=== PATIENT | male | born 1955 | race Caucasian/White ===

== ENCOUNTER 2016-08-05 06:55 | Outpatient (CLI) | payer OTHER | END 2016-08-05 06:56 | disposition home or self-care (01) | DX: R07.9 Chest pain, unspecified (principal); R06.00 Dyspnea, unspecified ==

== ENCOUNTER 2017-06-15 09:18 | Outpatient (CLI) | payer OTHER ==
[2017-06-15 09:49] LABS: BASOPHILS % (AUTO) 1.1 %; EOSINOPHILS # (AUTO) 0.2 10^3/uL (0.0-0.7); EOSINOPHILS % (AUTO) 5.1 %; HCT - HEMATOCRIT 45.4 % (42.0-52.0); HGB - HEMOGLOBIN 15.8 g/dL (14.0-18.0); LYMPHOCYTES # (AUTO) 1.4 10^3/uL (1.5-3.5); MEAN CORPUSCULAR HEMOGLOBIN 31.6 pg (27.0-31.0); MEAN CORPUSCULAR HGB CONC 34.8 g/dL (32.0-36.0); MEAN CORPUSCULAR VOLUME 90.9 fL (80.0-94.0); MEAN PLATELET VOLUME 8.6 fL (7.4-11.4); MONOCYTES # (AUTO) 0.4 10^3/uL (0.0-1.0); MONOCYTES % (AUTO) 9.8 %; NEUTROPHILS # (AUTO) 2.3 10^3/uL (1.5-6.6); RED CELL DISTRIBUTION WIDTH 13.1 % (12.0-15.0); UNCORRECTED WHITE BLOOD COUNT 4.4 x10^3/uL; WHITE BLOOD COUNT 4.4 x10^3/uL (4.8-10.8)
[2017-06-15 09:59] LABS: ALBUMIN/GLOBULIN RATIO 1.5 (1.0-2.2); BILIRUBIN,TOTAL 0.6 mg/dL (0.2-1.0); BUN - BLOOD UREA NITROGEN 19 mg/dL (6-20); CALCIUM 9.8 mg/dL (8.5-10.3); CARBON DIOXIDE - CO2 27 mmol/L (21-32); CHLORIDE 102 mmol/L (101-111); CHOL/HDL RATIO 4.2 (<5.0); CHOLESTEROL 298 mg/dL; CREATININE 0.9 mg/dL (0.6-1.2); GFR - MDRD 86 (>89); GLUCOSE 109 mg/dL (70-100); HDL CHOLESTEROL 71 mg/dL; LDL/HDL RATIO 2.9 (<3.6); POTASSIUM 4.6 mmol/L (3.5-5.0); SODIUM 138 mmol/L (135-145); TOTAL PROTEIN 7.6 g/dL (6.7-8.2); TRIGLYCERIDES 95 mg/dL; VLDL CHOLESTEROL 19 mg/dL
== END 2017-06-15 09:19 | disposition home or self-care (01) ==
LOC: LAB 09:18
PROVIDERS: ATTEND Physician Assistant Medical
DX: Z00.00 Encounter for general adult medical examination without abnormal findings (principal); Z11.59 Encounter for screening for other viral diseases; E78.2 Mixed hyperlipidemia; Z12.5 Encounter for screening for malignant neoplasm of prostate; N40.0 Benign prostatic hyperplasia without lower urinary tract symptoms
CPT/HCPCS: 36415; 80053; 80061; 84153; 84443; 85025; 86803

== ENCOUNTER 2017-07-08 10:39 | Outpatient (CLI) | payer OTHER | END 2017-07-08 10:40 | disposition home or self-care (01) | LOC: SC 10:39 | PROVIDERS: ATTEND Specialist | DX: G47.33 Obstructive sleep apnea (adult) (pediatric) (principal) | CPT/HCPCS: 99204; 99212 ==

== ENCOUNTER 2017-07-09 10:48 | Outpatient (CLI) | payer OTHER ==
[2017-07-09] MEDS ORDERED: IOPAMIDOL-300 50 ML VIAL ONE ×2 (11:05→11:09)
[2017-07-09] MEDS ORDERED: IOPAMIDOL-300 100 ML VIAL ONE (11:05)
[2017-07-09] MEDS ORDERED: IOPAMIDOL-300 100 ML VIAL IVP ONE (12:46)
[2017-07-09] MEDS ORDERED: IOPAMIDOL-300 50 ML VIAL PO ONE (12:46)
--- NOTE | 2017-07-09 13:03 | CT Preliminary Report ---
Exam: CT ABDOMEN/PELVIS W/ IMPRESSION: 1. Uncomplicated descending/sigmoid diverticulitis. 2. Chronic and incidental findings as above. [facility] SITE ID: [id number]
--- NOTE | 2017-07-09 13:06 | CT Report ---
EXAM: CT ABDOMEN AND PELVIS EXAM DATE: 07/09/2017 12:47 PM. CLINICAL HISTORY: ABDOMINAL PAIN, GENERALIZED. COMPARISONS: 12/12/2014. TECHNIQUE: Routine helical CT imaging was performed through the abdomen and pelvis. IV contrast: 100M L OF ISOVUE 300. Enteric contrast: Yes. Reconstructions: Coronal and sagittal. In accordance with CT protocol optimization, one or more of the following dose reduction techniques w ere utilized for this exam: automated exposure control, adjustment of mA and/or KV based on patient s ize, or use of iterative reconstructive technique. FINDINGS: Lung Bases: Unremarkable. Liver: Small hepatic cysts again demonstrated. Possible mild steatosis. Gallbladder/Bile Ducts: Unremarkable. Spleen: Borderline splenomegaly; no focal abnormality. Pancreas: Normal. Adrenal Glands: Normal. Kidneys: Right inferior pole exophytic simple cyst. Additional bilateral hypodense foci are too small to fully characterize but likely also represent simple cysts. Punctate nonobstructing calculus in th e inferior pole of the right kidney. No right hydronephrosis. Mildly dilated left renal collecting sy stem is similar to prior. Peritoneal Cavity/Bowel: No ascites or pneumoperitoneum. No bowel obstruction or abnormal stool burde n. Moderate to marked diverticulosis, most pronounced in the sigmoid colon. There is wall thickening and adjacent inflammatory fat stranding from the distal descending colon to the mid sigmoid colon. No fluid collection. The appendix is well visualized and normal. Pelvic Organs: The urinary bladder and imaged pelvic organs demonstrate no significant abnormality. Vasculature: Mild atherosclerosis without aneurysm. Bones: Small bilateral fat-containing inguinal hernias, right larger than left. Other: None. IMPRESSION: 1. Uncomplicated descending/sigmoid diverticulitis. 2. Chronic and incidental findings as above. [facility] Referring Provider Line: [phone] SITE ID: [id number]
== END 2017-07-09 10:49 | disposition home or self-care (01) ==
LOC: DI 10:48
PROVIDERS: ATTEND Physician Assistant Medical
DX: K57.32 Diverticulitis of large intestine without perforation or abscess without bleeding (principal)
CPT/HCPCS: 36415; 74177; 80053; 83690; 85025; 85651; 86140; Q9967

== ENCOUNTER 2017-07-13 11:04 | Inpatient (IN) | payer OTHER ==
[2017-07-13] MEDS ORDERED: SODIUM CHLORIDE 0.9% 1,000 ML IV ONE (11:06)
[2017-07-13 11:27] LABS: BASOPHILS % (AUTO) 0.7 %; EOSINOPHILS # (AUTO) 0.1 10^3/uL (0.0-0.7); EOSINOPHILS % (AUTO) 2.3 %; HCT - HEMATOCRIT 42.7 % (42.0-52.0); HGB - HEMOGLOBIN 15.1 g/dL (14.0-18.0); LYMPHOCYTES # (AUTO) 1.2 10^3/uL (1.5-3.5); LYMPHOCYTES % (AUTO) 17.7 %; MEAN CORPUSCULAR HGB CONC 35.4 g/dL (32.0-36.0); MEAN CORPUSCULAR VOLUME 87.5 fL (80.0-94.0); MEAN PLATELET VOLUME 7.6 fL (7.4-11.4); MONOCYTES # (AUTO) 0.6 10^3/uL (0.0-1.0); MONOCYTES % (AUTO) 9.7 %; NEUTROPHILS # (AUTO) 4.6 10^3/uL (1.5-6.6); NEUTROPHILS % (AUTO) 69.6 %; NUCLEATED RED BLOOD CELLS AUTO 0.1 /100WBC; RED BLOOD COUNT 4.89 10^6/uL (4.70-6.10); RED CELL DISTRIBUTION WIDTH 12.6 % (12.0-15.0); UNCORRECTED WHITE BLOOD COUNT 6.6 x10^3/uL; WHITE BLOOD COUNT 6.6 x10^3/uL (4.8-10.8)
[2017-07-13 11:41] LABS: BILIRUBIN,TOTAL 0.6 mg/dL (0.2-1.0); CALCIUM 9.4 mg/dL (8.5-10.3); CREATININE 0.9 mg/dL (0.6-1.2); POTASSIUM 3.7 mmol/L (3.5-5.0); TOTAL PROTEIN 8.1 g/dL (6.7-8.2)
[2017-07-13] MEDS ORDERED: MORPHINE 2 MG/ML SYRINGE IVP STA ×2 (12:00→14:36)
[2017-07-13] MEDS ORDERED: ONDANSETRON 4 MG/2 ML VIAL IVP STA (12:00)
[2017-07-13] MEDS ORDERED: IOPAMIDOL-300 100 ML VIAL ONE (12:28)
[2017-07-13] MEDS ORDERED: MORPHINE 2 MG/ML SYRINGE ONE (12:30)
[2017-07-13] MEDS ORDERED: ONDANSETRON 4 MG/2 ML VIAL ONE (12:30)
--- NOTE | 2017-07-13 13:06 | ED Physician Documentation ---
History of Present Illness - Stated complaint Stated Complaint: ABD PX - Chief complaint Chief Complaint: Abd Pain - Additonal information Additional information: hx from pt 62 male [facility] staff seen in clinic last week for LLQ pain, had CT PO and IV con and dx uncomplicated sigmoid divertic rx cipro flagyl much worse severe pain cant eat back to clinic and sent to ER Review of Systems Constitutional: reports: Myalgias. denies: Fever, Chills Cardiac: denies: Chest pain / pressure Respiratory: denies: Cough GI: reports: Abdominal Pain Neurologic: reports: Headache (he attributes to dehydration) Endocrine: denies: Easy bruising / bleeding Immunocompromised: denies: Immunocompromised PD PAST MEDICAL HISTORY - Past Medical History Past Medical History: Yes Cardiovascular: Hypertension, High cholesterol GI: Diverticulitis : Kidney stones - Past Surgical History Past Surgical History: Yes Ortho: Arthroscopic surgery - Present Medications Home Medications: Ambulatory Orders Medication Instructions Recorded Confirmed Ondansetron Odt [Zofran] 4 mg TL Q6H PRN #10 tablet 12/12/14 Oxycodone HCl/Acetaminophen 1 - 2 each PO Q6H PRN #15 tablet 12/12/14 [Percocet 5-325 mg Tablet] - Allergies Allergies/Adverse Reactions: Allergies Allergy/AdvReac Type Severity Reaction Status Date / Time albuterol Allergy Respiratory Verified 12/12/14 10:20 Sulfa (Sulfonamide Allergy Unknown Verified 12/12/14 10:20 Antibiotics) - Social History Does the pt smoke?: No Smoking Status: Never smoker Does the pt drink ETOH?: No Does the pt have substance abuse?: No PD ED PE NORMAL - Vitals Vital signs reviewed: Yes - General General: Alert and oriented X 3 - HEENT HEENT: PERRL - Neck Neck: Supple, no meningeal sign - Cardiac Cardiac: RRR - Respiratory Respiratory: No respiratory distress, Clear bilaterally - Abdomen Abdomen: Other (severe TTP diffusely LLQ most severe with guarding) - Neuro Neuro: Alert and oriented X 3 Results - Vitals Vitals: Vital Signs - 24 hr 07/13/17 07/13/17 11:09 12:59 Temperature 36.2 C L Heart Rate 65 66 Respiratory 15 18 Rate Blood Pressure 179/93 H 165/91 H O2 Saturation 100 99 Oxygen O2 Source Room air - Labs Labs: Laboratory Tests 07/13/17 07/13/17 11:15 11:15 WBC 6.6 RBC 4.89 Hgb 15.1 Hct 42.7 MCV 87.5 MCH 31.0 MCHC 35.4 RDW 12.6 Plt Count 241 MPV 7.6 Neut # 4.6 Lymph # 1.2 L [place] # 0.6 Eos # 0.1 Baso # 0.0 Absolute Nucleated RBC 0.01 Nucleated RBC % 0.1 Sodium 137 Potassium 3.7 Chloride 98 L Carbon Dioxide 25 Anion Gap 14.0 H BUN 8 Creatinine 0.9 Estimated GFR (MDRD) 86 L Glucose 103 H Calcium 9.4 Total Bilirubin 0.6 AST 37 ALT 39 Alkaline Phosphatase 56 Total Protein 8.1 Albumin 4.1 Globulin 4.0 Albumin/Globulin Ratio 1.0 Lipase 15 L - Rads (name of study) CT AP with IV con Radiology: See rad report (increasing length abn colon now distal descending and prox sigmoid, full ddx = divertic, colitiis, pseudomembranous colitis, ischemia, inflammatory bowel, atypical for malignnay. No perf or abscess. Inc LUQ and LLQ mesenteric edema and adenopathy. New trace FF. Hepatic and renal cysts. R renal stones, no obstructive process) PD MEDICAL DECISION MAKING - ED course ED course: d/w surgeon Dr Casas, rec change to zosyn, no need for surgery, admit to medicine paged hospitalist at 137 PM Departure - Departure Disposition: 66 [facility] DC/Xfer Clinical Impression: Diverticulitis
[2017-07-13] MEDS ORDERED: IOPAMIDOL-300 100 ML VIAL IVP ONE (13:17)
--- NOTE | 2017-07-13 13:27 | CT Preliminary Report ---
Exam: CT ABDOMEN/PELVIS W/ IMPRESSION: 1. Increasing length of the abnormal colon now involving the distal descending colon and proximal sig moid colon consistent with extension of diverticulitis. Full differential would include colitis, pseu domembranous colitis, ischemia, inflammatory bowel disease. Atypical for nonobstructing malignancy. N o evidence of perforation nor abscess. 2. Increasing left upper quadrant and left lower quadrant mesenteric edema and shotty mesenteric vinnie opathy. 3. New trace amount of free pelvic fluid. 4. Hepatic and renal cysts. 5. Right renal lithiasis. No obstructive uropathy. [facility] SITE ID: [id number]
[2017-07-13] MEDS ORDERED: PIPERACILLIN/TAZOBACTAM 3.375 GM in SODIUM CHLORIDE 0.9% MINIBAG 100 ML IV STA (13:34)
--- NOTE | 2017-07-13 13:45 | CT Report ---
EXAM: CT ABDOMEN AND PELVIS EXAM DATE: 07/13/2017 12:49 PM. CLINICAL HISTORY: Sigmoid diverticulitis diagnosed 07/09/2017. Despite antibiotic therapy, increasing pain. COMPARISONS: 07/09/2017. TECHNIQUE: Routine helical CT imaging was performed through the abdomen and pelvis. IV contrast: 100 mL Isovue 300. Enteric contrast: No. Reconstructions: Coronal and sagittal. In accordance with CT protocol optimization, one or more of the following dose reduction techniques w ere utilized for this exam: automated exposure control, adjustment of mA and/or KV based on patient s ize, or use of iterative reconstructive technique. FINDINGS: Lung Bases: Unremarkable. Liver: Several dozen 3 cm and smaller hepatic cysts. Gallbladder/Bile Ducts: Unremarkable. Spleen: Normal. Pancreas: Normal. Adrenal Glands: Normal. Kidneys: 3.5 cm and smaller renal cysts bilaterally with several left parapelvic cysts. No hydronephr osis allowing for such. Both ureters are small in caliber. 2 mm stone in the inferior right renal calyx unchanged. No solid mass lesions. Peritoneal Cavity/Bowel: Previously, 5 cm segment of abnormal distal descending colon. The length of colon wall thickening, small amount of adjacent mesenteric edema and linear fluid collections has inc reased to 15 cm in length now extending from the junction of the mid and inferior third descending co oanh distally to involve the proximal third sigmoid colon. Multiple inflamed diverticuli in this regio n. No extraluminal air nor abscess. Slight increase in nonspecific mesenteric edema left upper quadrant and left lower quadrant. Interval decreasing caliber of a left upper quadrant mesenteric lymph node previously measuring 1.7 x 1.0 cm, now measuring 0.7 cm in maximum cross-sectional diameter. Overall, increasing shotty mesenteric vinnie opathy on the left. Large and small bowel unremarkable. The appendix is well visualized and normal. Pelvic Organs: New trace amount of free fluid. No stones in the small caliber urinary bladder. Prosta te normal caliber. Rectum is normal. Small bilateral fat-containing inguinal hernias. Vasculature: No aneurysms or other significant abnormality. Bones: No significant abnormality. Other: None. IMPRESSION: 1. Increasing length of the abnormal colon now involving the distal descending colon and proximal si gmoid colon consistent with extension of diverticulitis. Full differential would include colitis, pse udomembranous colitis, ischemia, inflammatory bowel disease. Atypical for nonobstructing malignancy. No evidence of perforation nor abscess. 2. Increasing left upper quadrant and left lower quadrant mesenteric edema and shotty mesenteric vinnie opathy. 3. New trace amount of free pelvic fluid. 4. Hepatic and renal cysts. 5. Right renal lithiasis. No obstructive uropathy. [facility] Referring Provider Line: [phone] SITE ID: [id number]
[2017-07-13] MEDS ORDERED: SODIUM CHLORIDE FLUSH 0.9% 10 ML SYRINGE IVP PRN (14:34)
[2017-07-13] MEDS: SODIUM CHLORIDE 0.9% 1,000 ML IV SCH (15:58)
[2017-07-13] MEDS: HYDROmorphone 0.5 MG/0.5 ML SYRINGE IVP PRN ×3 (15:58→23:06)
--- NOTE | 2017-07-13 17:09 | HISTORY & PHYSICAL EXAMINATION ---
Chief Complaint - Chief Complaint Chief Complaint: abdominal pain, diverticulitis Abdominal Pain HPI - Admitted From Admitted from: ED - History Obtained From Records Reviewed: RN notes reviewed, Old records reviewed History obtained from: Patient Exam limitations: No limitations - History of Present Illness Severity at the worst: Moderate Pain Quality: Sharp, Burning Context-Pain started w/: Movement, Position Timing: Abrupt onset Worsened by: Movement, Nothing Associated symptoms: Nausea, General Weakness, Other (explosive, sudden diahrrhea.) HPI Comment/Other: Marciano Guillen is a 62-year old male with a past medical history of chronic headaches, HTN, hyperlipidemia, bilarteral knee arthroscopic surgery, chronic low back pain, hydrocele, KRIS-compliant with home CPAP, ADD, marijuana use, depression-in remission, and diverticulitis. His symptoms started on Wednesday ( 7 days ago) and included, weakness, fatigue, sweats, chills, diarrhea, anorexia , nausea and increased sleep. He claims that he found some relief if he was in the " position", and by taking pepto-bismol. Finally by day #4 of ongoing symptoms, his convinced him to go to his PCP, who diagnosed diverticulitis on 07/09/17 and prescribed Cipro PO. Patient admitted to feel somewhat better by the next day, but then on day 5 became progressively worse until he presented to the ED today with a primary complaint of severe LLQ pain, inability to eat and he notes "feeling cold". A abdominal/pelvis CT was completed which confirmed a worsening of his diverticulitis, now with free fluid in his pelvic cavity. General surgery was notified and recommended no surgical intervention at this time. He will be admitted as inpatient for IV antibiotics, pain and symptom control with General surgery available if needed. 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 Hx of right elbow osteo-2.5 years of antibiotics, now resolved. Admits to being bit by lots of Tics throughout his life, none recently.) GI: positive: Diverticulitis : positive: Nocturia, Kidney stones HEENT: positive: Chronic sinusitis Psych: positive: Depression (managed, without suicidal ideation.), Anxiety, ADD/ ADHD (untreated, history of Ritalin use.) Musculoskeletal: positive: Fatigue, Chronic back pain, Other (sore joints in bilateral hands in light of acute illness.) Derm: positive: Other (itchy spots, intermittent-resolved, but remains with sensitive skin.) MRSA Hx?: No Other Past Medical History: Hydrocele several years ago. - Past Surgical History General: positive: Colonoscopy (2 years ago per patient.) Ortho: positive: Arthroscopic surgery (bilateral knees.) Cardiovascular: positive: Other (recent cardiac work up at [facility]-per patient cardiac stress test negative) Social & Family Hx - Living Situation Living Arrangement: At home Living Situation: With spouse/s.o. - Social History Does the pt smoke?: No Smoking Status: Former smoker (marijuana for several years.) Does the pt drink ETOH?: No Does the pt have substance abuse?: No Additional Social History: Patient is retired as a entry level mechanical engineer. Walks and rides mountain bike daily on nearby trails. Drinks 1-2 beers per day. to and resides with Fannie of 28 years. Has never had children. - POLST Patient has POLST: No POLST Status: Full Code - Family History Family History: Mother: Alive and Well (sister suffers from Lymes disease), CAD , Father: , CAD, Diabetes, Type 2, Renal Disease/Failure, Sister: Alive and Well, CAD, Brother: Alive and Well Meds/Allgy - Home Medications Home Medications: Ambulatory Orders Medication Instructions Recorded Confirmed Ondansetron Odt [Zofran] 4 mg TL Q6H PRN #10 tablet 12/12/14 07/13/17 Oxycodone HCl/Acetaminophen 1 - 2 each PO Q6H PRN #15 tablet 12/12/14 07/13/17 [Percocet 5-325 mg Tablet] diazePAM [Diazepam] 5 mg PO Q8H PRN 07/13/17 07/13/17 - Allergies Allergies/Adverse Reactions: Allergies Allergy/AdvReac Type Severity Reaction Status Date / Time albuterol Allergy Respiratory Verified 12/12/14 10:20 Sulfa (Sulfonamide Allergy Unknown Verified 12/12/14 10:20 Antibiotics) Review of Systems - Constitutional Constitutional: reports: Fatigue, Chills, Weakness, Poor appetite, Night sweats - Ears, Nose & Throat Ears, Nose & Throat: reports: Postnasal drainage - Gastrointestinal Gastrointestinal: reports: Abdominal pain, Diarrhea, Change in bowel habits, Nausea, Poor appetite - Musculoskeletal Musculoskeletal: reports: Back pain, Muscle aches, Joint pain (bilateral hands) - Integumentary Integumentary: reports: Dryness - Neurological Neurological: reports: General weakness, Headache (chronic), Pre-existing deficit - Psychiatric Psychiatric: reports: Depression, Other (ADD) - Endocrine Endocrine: reports: Intolerance to cold (chills related to illness) - All Other Systems All Other Systems: reports: Reviewed and negative Exam - Vital Signs Reviewed Vital Signs: Yes Vital Signs: Vital Signs x48h Temp Pulse Pulse Resp BP BP Pulse Ox 07/13/17 16:02 97.9 C H 66 20 141/86 H 98 07/13/17 15:09 36.8 C 69 20 155/101 H 100 07/13/17 14:55 64 12 150/103 H 100 - Physical Exam General Appearance: positive: No acute distress, Alert Eyes Bilateral: positive: Normal inspection, PERRL, No lid inflammation ENT: positive: ENT inspection nml, Pharynx nml, Dry mucous membranes Neck: positive: Nml inspection, Thyroid nml, No JVD, Trachea midline Respiratory: positive: Chest non-tender, No respiratory distress, Breath sounds nml Cardiovascular: positive: Regular rate & rhythm, No murmur Peripheral Pulses: positive: 2+ Abdomen: positive: Tenderness, Guarding, Rebound, Hepatomegaly, Abnml bowel sounds, Other (LLQ & LUQ tenderness) Back: positive: Nml inspection Skin: positive: Color nml, No rash, Warm, Dry Extremities: positive: Non-tender, Full ROM, Nml appearance, No pedal edema Neurologic/Psychiatric: positive: Oriented x3, CN's nml (2-12), Motor nml, Sensation nml, Depressed mood/affect Reflexes: Bicep (R): 4+, Bicep (L): 4+ Results - Lab Results Fish Bones: 07/13/17 11:15 07/13/17 11:15 - Diagnostic Imaging Results Diagnostic Imaging Results: positive: Final report reviewed Diagnostic Imaging Results Comments: Abdomen/pelvis CT 07/13/17: FINDINGS: Lung Bases: Unremarkable. Liver: Several dozen 3 cm and smaller hepatic cysts. Gallbladder/Bile Ducts: Unremarkable. Spleen: Normal. Pancreas: Normal. Adrenal Glands: Normal. Kidneys: 3.5 cm and smaller renal cysts bilaterally with several left parapelvic cysts. No hydronephrosis allowing for such. Both ureters are small in caliber. 2 mm stone in the inferior right renal calyx unchanged. No solid mass lesions. Peritoneal Cavity/Bowel: Previously, 5 cm segment of abnormal distal descending colon. The length of colon wall thickening, small amount of adjacent mesenteric edema and linear fluid collections has increased to 15 cm in length now extending from the junction of the mid and inferior third descending colon distally to involve the proximal third sigmoid colon. Multiple inflamed diverticuli in this region. No extraluminal air nor abscess. Slight increase in nonspecific mesenteric edema left upper quadrant and left lower quadrant. Interval decreasing caliber of a left upper quadrant mesenteric lymph node previously measuring 1.7 x 1.0 cm, now measuring 0.7 cm in maximum cross-sectional diameter. Overall, increasing shotty mesenteric adenopathy on the left. Large and small bowel unremarkable. The appendix is well visualized and normal. Pelvic Organs: New trace amount of free fluid. No stones in the small caliber urinary bladder. Prostate normal caliber. Rectum is normal. Small bilateral fat- containing inguinal hernias. Vasculature: No aneurysms or other significant abnormality. Bones: No significant abnormality. Other: None. IMPRESSION: 1. Increasing length of the abnormal colon now involving the distal descending colon and proximal sigmoid colon consistent with extension of diverticulitis. Full differential would include colitis, pseudomembranous colitis, ischemia, inflammatory bowel disease. Atypical for nonobstructing malignancy. No evidence of perforation nor abscess. 2. Increasing left upper quadrant and left lower quadrant mesenteric edema and shotty mesenteric adenopathy. 3. New trace amount of free pelvic fluid. 4. Hepatic and renal cysts. 5. Right renal lithiasis. No obstructive uropathy. - EKG Results EKG Interpreted Independently: Yes ARRA - Anticipated LOS Anticipated Stay Length: 2 or more midnights (In [place] I feel that the patient is reasonably expected to be discharged and/or transferred to another hospital within 96 hours.) - AMI - Statin at Admit Aspirin Prescribed on Admit: No Not Ordered - Medical Reason: Not indicated - Stroke - Rehab Assessment Rehab services assessment to be ordered?: No Not Ordered - Medical Reason: Contraindicated - DVT/VTE - Prophylaxis VTE/DVT Device ordered at admit?: Yes VTE/DVT Prophylaxis med ordered at admit?: No Not Ordered - Medical Reason: Contraindicated Impression/Plan - Problem List Problem List: Diverticulitis of intestine, part unspecified, without perforation or abscess without bleeding (K57.92) -Per abdominal/pelvic CT it showed increasing length of the abnormal colon now involving the distal descending colon and proximal sigmoid colon consistent with extension of diverticulitis. Atypical for nonobstructing malignancy. No evidence of perforation nor abscess. Increasing left upper quadrant and left lower quadrant mesenteric edema and shotty mesenteric adenopathy. New trace amount of free pelvic fluid. Plan: Continue with IV zosyn for at least 2 midnights. Unspecified abdominal pain (R10.9) Patient continues to have pain mostly located in LUQ and LLQ. Plan: Continue to control with IV hydromorphone. Clear liquid diet ok. Obstructive sleep apnea (G47.33) -Patient has had this for several years and does not have a large neck circumference. Patient states he is compliant with home CPAP, although is over due for a controlled sleep study test in the lab. Plan: will deliver home unit and patient plans to wear at night without oxygen bleed in. Calculus of kidney (N20.0) -Per CT scan results, renal cysts, right renal lithiasis. No obstructive uropathy. Patient has no CVA tenderness upon exam. Plan: Monitor and control symptoms as needed. Code status- Full code. DVT prophylaxis with SCD device, anticoagulation not indicated.
[2017-07-13] MEDS ORDERED: ONDANSETRON ODT 4 MG TABLET TL PRN (19:52)
[2017-07-13] MEDS: PIPERACILLIN/TAZOBACTAM 3.375 GM in SODIUM CHLORIDE 0.9% MINIBAG 100 ML IV SCH (20:35)
[2017-07-13] MEDS: SODIUM CHLORIDE FLUSH 0.9% 10 ML SYRINGE IVP SCH (20:41)
[2017-07-13] MEDS: diazePAM 5 MG TABLET PO PRN (23:01)
[2017-07-14] MEDS: SODIUM CHLORIDE 0.9% 1,000 ML IV SCH ×3 (00:02→17:00)
[2017-07-14] MEDS ORDERED: diphenhydrAMINE 25 MG CAPSULE PO SCH (00:31)
[2017-07-14] MEDS: PIPERACILLIN/TAZOBACTAM 3.375 GM in SODIUM CHLORIDE 0.9% MINIBAG 100 ML IV SCH ×4 (01:29→21:10)
[2017-07-14] MEDS: SODIUM CHLORIDE FLUSH 0.9% 10 ML SYRINGE IVP SCH ×4 (05:54→20:59)
[2017-07-14] MEDS: HYDROmorphone 0.5 MG/0.5 ML SYRINGE IVP PRN ×5 (06:01→21:20)
--- NOTE | 2017-07-14 08:38 | PROVIDER PROGRESS NOTE ---
Subjective - Prog Note Date Prog Note Date: 07/14/17 Prog Note Time: 08:38 - Subjective Pt reports feeling: Improved Subjective: Patient has a primary complaint of ongoing insomnia. He denies SOB, chest pain , vomiting or a new cough. Intermittent nausea at times. Current Medications - Current Medications Current Medications: Active Medications Acetaminophen (Tylenol) 650 mg PO Q4HR PRN PRN Reason: Pain or Fever > 38C (100.4F) Diazepam (Valium) 5 mg PO Q8H PRN PRN Reason: PAIN Last Admin: 07/14/17 23:13 Dose: 5 mg Hydromorphone HCl (Dilaudid Inj Syringe) 0.5 mg IVP Q2H PRN PRN Reason: PAIN Last Admin: 07/14/17 21:20 Dose: 0.5 mg Sodium Chloride (Normal Saline 0.9%) 1,000 mls @ 125 mls/hr IV .Q8H [facility] Last Admin: 07/15/17 01:35 Dose: 125 mls/hr Piperacillin Sod/Tazobactam (Sod 3.375 gm/ Sodium Chloride) 100 mls @ 200 mls/ hr IV Q6H [facility] Last Infusion: 07/15/17 02:05 Dose: Infused Acetaminophen (Ofirmev) 100 mls @ 400 mls/hr IV Q6HR PRN PRN Reason: PAIN Last Infusion: 07/14/17 18:12 Dose: Infused Ondansetron HCl (Zofran Odt) 4 mg TL Q6H PRN PRN Reason: Nausea / Vomiting Oxycodone HCl (Roxicodone) 10 mg PO Q4H PRN PRN Reason: PAIN Last Admin: 07/14/17 21:27 Dose: 10 mg Oxymetazoline HCl (Afrin) 2 sprays ROX BID [facility] Stop: 07/17/17 13:59 Last Admin: 07/14/17 21:12 Dose: Not Given Polyethylene Glycol (Miralax) 17 gm PO DAILY [facility] Last Admin: 07/14/17 08:46 Dose: 17 gm Saccharomyces Boulardii (Florastor) 500 mg PO BIDWM [facility] Last Admin: 07/14/17 17:07 Dose: 500 mg Sodium Chloride (Normal Saline Flush 0.9%) 10 ml IVP PRN PRN PRN Reason: NEEDED PER PROVIDER ORDERS Sodium Chloride (Normal Saline Flush 0.9%) 10 ml IVP Q8HR [facility] Last Admin: 07/15/17 03:28 Dose: Not Given Sodium Chloride ([place]) 2 sprays ROX Q4HR PRN PRN Reason: Nasal Congestion Trazodone HCl (Desyrel) 100 mg PO QPM PRN PRN Reason: Insomnia Last Admin: 07/14/17 23:13 Dose: 100 mg diazePAM [Diazepam] 5 mg PO Q8H PRN 07/13/17 Objective - Vital Signs/Intake & Output Reviewed Vital Signs: Yes Vital Signs: Vital Signs x48h Temp Pulse Resp BP Pulse Ox 07/14/17 07:41 36.5 C 73 18 144/92 H 99 Intake & Output: Intake & Output 07/11/17 07/12/17 07/13/17 07/14/17 23:59 23:59 23:59 23:59 Intake Total 1100 200 Balance 1100 200 - Objective General Appearance: positive: No acute distress, Alert ENT: positive: ENT inspection nml Neck: positive: Nml inspection, Thyroid nml, No JVD, Trachea midline Respiratory: positive: Chest non-tender, No respiratory distress, Breath sounds nml Cardiovascular: positive: Regular rate & rhythm, No murmur, No gallop Peripheral Pulses: 1+ Dorsalis pedis (R), 1+ Dorsalis pedis (L), 2+ Radial (R), 2+ Radial (L) Abdomen: positive: No organomegaly, No distention, Guarding, Abnml bowel sounds Back: positive: Nml inspection Skin: positive: Color nml, No rash, Warm, Dry Extremities: positive: Non-tender, Full ROM, Nml appearance, No pedal edema Neurologic/Psychiatric: positive: Oriented x3, CN's nml (2-12), Motor nml, Sensation nml, Depressed mood/affect Reflexes: Bicep (R): 3+, Bicep (L): 3+ - Lab Results Fish Bones: 07/13/17 11:15 07/13/17 11:15 - Diagnostic Imaging Diagnostic Imaging Results: positive: Final report reviewed Assessment/Plan - Problem List (1) Diverticulitis Impression: Per abdominal/pelvic CT it showed increasing length of the abnormal colon now involving the distal descending colon and proximal sigmoid colon consistent with extension of diverticulitis. Atypical for nonobstructing malignancy. No evidence of perforation nor abscess. Increasing left upper quadrant and left lower quadrant mesenteric edema and shotty mesenteric adenopathy. New trace amount of free pelvic fluid. Plan: Continue with IV zosyn and manage pain. May consider re-imaging upon discharge. (2) Abdominal pain Impression: Patient continues to have pain mostly located in LUQ and LLQ. This is slowly improved since the time of admission, less guarding noticed upon palpation. Plan: Continue to control with IV hydromorphone. Clear liquid diet ok. (3) KRIS (obstructive sleep apnea) Impression: Patient has had this for several years and does not have a large neck circumference. Patient states he is compliant with home CPAP, although is over due for a controlled sleep study test in the lab. Plan: Home unit delivered and patient has been compliant with wearing it at night without oxygen bleed in. (4) Calculus of kidney Impression: Per CT scan results, renal cysts, right renal lithiasis. No obstructive uropathy. Patient has no CVA tenderness upon exam. No hematuria noted. Plan: Monitor and control symptoms as needed.
[2017-07-14] MEDS: POLYETHYLENE GLYCOL 3350 17 GM PACKET PO SCH (08:46)
[2017-07-14] MEDS ORDERED: SODIUM CHLORIDE 0.65% NASAL SPRAY NAS PRN (13:18)
[2017-07-14] MEDS: SACCHAROMYCES BOULARDII 250 MG CAPSULE PO SCH ×2 (13:47→17:07)
[2017-07-14] MEDS: OXYMETAZOLINE NASAL SPRAY NAS SCH ×2 (13:48→21:12)
[2017-07-14] MEDS ORDERED: oxyCODONE 5 MG TABLET PO PRN (16:44)
[2017-07-14] MEDS ORDERED: ACETAMINOPHEN 1,000 MG/100 ML 100 ML IV PRN (16:46)
[2017-07-14] MEDS ORDERED: SODIUM CHLORIDE FLUSH 0.9% 10 ML SYRINGE IVP ONE (17:04)
[2017-07-14] MEDS: traZODone 50 MG TABLET PO PRN (23:13)
[2017-07-14] MEDS: diazePAM 5 MG TABLET PO PRN (23:13)
[2017-07-15] MEDS: SODIUM CHLORIDE 0.9% 1,000 ML IV SCH ×3 (01:35→19:45)
[2017-07-15] MEDS: PIPERACILLIN/TAZOBACTAM 3.375 GM in SODIUM CHLORIDE 0.9% MINIBAG 100 ML IV SCH ×4 (01:35→20:11)
[2017-07-15] MEDS: SODIUM CHLORIDE FLUSH 0.9% 10 ML SYRINGE IVP SCH ×3 (03:28→20:14)
--- NOTE | 2017-07-15 07:13 | PROVIDER PROGRESS NOTE ---
Subjective - Prog Note Date Prog Note Date: 07/15/17 Prog Note Time: 07:13 - Subjective Pt reports feeling: No change Subjective: Marciano admits to getting a better nights sleep last night after adding a HS trazadone. He denies SOB, chest pain, N/V or a new cough. He admits to tolerating a clear liquid diet and would like to advance in the AM. , Fannie is at the bedside for the exam. Current Medications - Current Medications Current Medications: Active Medications Acetaminophen (Tylenol) 650 mg PO Q4HR PRN PRN Reason: Pain or Fever > 38C (100.4F) Last Admin: 07/15/17 17:53 Dose: 650 mg Amlodipine Besylate (Norvasc) 5 mg PO DAILY [facility] Last Admin: 07/15/17 20:18 Dose: Not Given Diazepam (Valium) 5 mg PO Q8H PRN PRN Reason: PAIN Last Admin: 07/15/17 22:32 Dose: 5 mg Hydromorphone HCl (Dilaudid Inj Syringe) 0.5 mg IVP Q2H PRN PRN Reason: PAIN Last Admin: 07/15/17 20:12 Dose: 0.5 mg Sodium Chloride (Normal Saline 0.9%) 1,000 mls @ 125 mls/hr IV .Q8H [facility] Last Admin: 07/16/17 04:01 Dose: 125 mls/hr Piperacillin Sod/Tazobactam (Sod 3.375 gm/ Sodium Chloride) 100 mls @ 200 mls/ hr IV Q6H [facility] Last Infusion: 07/16/17 02:04 Dose: Infused Acetaminophen (Ofirmev) 100 mls @ 400 mls/hr IV Q6HR PRN PRN Reason: PAIN Last Infusion: 07/14/17 18:12 Dose: Infused Ondansetron HCl (Zofran Odt) 4 mg TL Q6H PRN PRN Reason: Nausea / Vomiting Oxycodone HCl (Roxicodone) 10 mg PO Q4H PRN PRN Reason: PAIN Last Admin: 07/14/17 21:27 Dose: 10 mg Oxymetazoline HCl (Afrin) 2 sprays ROX BID [facility] Stop: 07/17/17 13:59 Last Admin: 07/15/17 20:15 Dose: 2 sprays Polyethylene Glycol (Miralax) 17 gm PO DAILY [facility] Last Admin: 07/15/17 09:42 Dose: 17 gm Saccharomyces Boulardii (Florastor) 500 mg PO BIDWM [facility] Last Admin: 07/15/17 18:04 Dose: 500 mg Sodium Chloride (Normal Saline Flush 0.9%) 10 ml IVP PRN PRN PRN Reason: NEEDED PER PROVIDER ORDERS Sodium Chloride (Normal Saline Flush 0.9%) 10 ml IVP Q8HR [facility] Last Admin: 07/16/17 06:40 Dose: Not Given Sodium Chloride ([place]) 2 sprays ROX Q4HR PRN PRN Reason: Nasal Congestion Trazodone HCl (Desyrel) 100 mg PO QPM PRN PRN Reason: Insomnia Last Admin: 07/15/17 22:32 Dose: 100 mg diazePAM [Diazepam] 5 mg PO Q8H PRN 07/13/17 Objective - Vital Signs/Intake & Output Reviewed Vital Signs: Yes Vital Signs: Vital Signs x48h Temp Pulse Resp BP Pulse Ox 07/15/17 00:42 36.9 C 65 16 166/93 H 97 Intake & Output: Intake & Output 07/12/17 07/13/17 07/14/17 07/15/17 23:59 23:59 23:59 23:59 Intake Total 1100 5170 1400 Balance 1100 5170 1400 - Objective General Appearance: positive: No acute distress, Alert Eyes Bilateral: positive: Normal inspection ENT: positive: ENT inspection nml, Pharynx nml, No signs of dehydration Neck: positive: Nml inspection, Thyroid nml Respiratory: positive: Chest non-tender, No respiratory distress, Breath sounds nml Cardiovascular: positive: Regular rate & rhythm, No murmur, No gallop Peripheral Pulses: 2+ Radial (R), 2+ Radial (L) Abdomen: positive: Tenderness, Guarding, Abnml bowel sounds (hyper) Back: positive: Nml inspection Skin: positive: Color nml, No rash, Warm, Dry Extremities: positive: Non-tender, Full ROM, Nml appearance, No pedal edema Neurologic/Psychiatric: positive: Oriented x3, CN's nml (2-12), Motor nml, Sensation nml Reflexes: Bicep (R): 4+, Bicep (L): 4+ - Lab Results Fish Bones: 07/16/17 05:43 12/22/17 05:43 - Diagnostic Imaging Diagnostic Imaging Results: positive: Final report reviewed Assessment/Plan - Problem List (1) Diverticulitis Impression: Per abdominal/pelvic CT it showed increasing length of the abnormal colon now involving the distal descending colon and proximal sigmoid colon consistent with extension of diverticulitis. Atypical for nonobstructing malignancy. No evidence of perforation nor abscess. Increasing left upper quadrant and left lower quadrant mesenteric edema and shotty mesenteric adenopathy. New trace amount of free pelvic fluid. Plan: Continue with IV zosyn and manage pain. May consider re-imaging upon discharge. (2) Abdominal pain Impression: Patient continues to have pain mostly located in LUQ and LLQ. This is slowly improved since the time of admission, less guarding noticed upon palpation. Plan: Continue to control with IV hydromorphone. Clear liquid diet was tolerated well, and plan for full liquid in AM. (3) KRIS (obstructive sleep apnea) Impression: Patient has had this for several years and does not have a large neck circumference. Patient states he is compliant with home CPAP, although is over due for a controlled sleep study test in the lab. Plan: Home unit delivered and patient has been compliant with wearing it at night without oxygen bleed in. (4) Calculus of kidney Impression: Per CT scan results, renal cysts, right renal lithiasis. No obstructive uropathy. Patient has no CVA tenderness upon exam. No hematuria noted. Plan: Monitor and control symptoms as needed. (5) Hypertension Impression: Blood pressure was 175/95 and 166/93 with ongoing headaches. Patient admits to a history of taking hydralazine in the past, but he got tired of taking it, so stopped. Plan: Start norvasc and monitor blood pressure.
[2017-07-15 07:37] LABS: ALBUMIN/GLOBULIN RATIO 1.2 (1.0-2.2); BILIRUBIN,TOTAL 0.2 mg/dL (0.2-1.0); CALCIUM 8.9 mg/dL (8.5-10.3); CREATININE 0.9 mg/dL (0.6-1.2); POTASSIUM 3.6 mmol/L (3.5-5.0); TOTAL PROTEIN 6.3 g/dL (6.7-8.2)
[2017-07-15 08:33] LABS: EOSINOPHILS # (AUTO) 0.2 10^3/uL (0.0-0.7); EOSINOPHILS % (AUTO) 6.3 %; HGB - HEMOGLOBIN 13.4 g/dL (14.0-18.0); LYMPHOCYTES # (AUTO) 1.2 10^3/uL (1.5-3.5); LYMPHOCYTES % (AUTO) 33.8 %; MEAN CORPUSCULAR HEMOGLOBIN 30.8 pg (27.0-31.0); MEAN CORPUSCULAR HGB CONC 35.2 g/dL (32.0-36.0); MEAN CORPUSCULAR VOLUME 87.7 fL (80.0-94.0); MEAN PLATELET VOLUME 8.4 fL (7.4-11.4); MONOCYTES # (AUTO) 0.4 10^3/uL (0.0-1.0); MONOCYTES % (AUTO) 12.2 %; NEUTROPHILS # (AUTO) 1.6 10^3/uL (1.5-6.6); NEUTROPHILS % (AUTO) 46.7 %; RED BLOOD COUNT 4.33 10^6/uL (4.70-6.10); RED CELL DISTRIBUTION WIDTH 12.3 % (12.0-15.0); UNCORRECTED WHITE BLOOD COUNT 3.5 x10^3/uL; WHITE BLOOD COUNT 3.5 x10^3/uL (4.8-10.8)
[2017-07-15] MEDS: POLYETHYLENE GLYCOL 3350 17 GM PACKET PO SCH (09:42)
[2017-07-15] MEDS: SACCHAROMYCES BOULARDII 250 MG CAPSULE PO SCH ×2 (09:44→18:04)
[2017-07-15] MEDS: HYDROmorphone 0.5 MG/0.5 ML SYRINGE IVP PRN ×3 (09:45→20:12)
[2017-07-15] MEDS: OXYMETAZOLINE NASAL SPRAY NAS SCH ×2 (09:50→20:15)
[2017-07-15] MEDS: ACETAMINOPHEN 325 MG TABLET PO PRN (17:53)
[2017-07-15] MEDS: amLODIPine 5 MG TABLET PO SCH (20:18)
[2017-07-15] MEDS ORDERED: amLODIPine 5 MG TABLET ONE (20:23)
[2017-07-15] MEDS: traZODone 50 MG TABLET PO PRN (22:32)
[2017-07-15] MEDS: diazePAM 5 MG TABLET PO PRN (22:32)
[2017-07-16] MEDS: PIPERACILLIN/TAZOBACTAM 3.375 GM in SODIUM CHLORIDE 0.9% MINIBAG 100 ML IV SCH ×4 (01:34→20:27)
[2017-07-16] MEDS: SODIUM CHLORIDE 0.9% 1,000 ML IV SCH ×3 (04:01→20:28)
[2017-07-16 06:05] LABS: BASOPHILS % (AUTO) 1.3 %; EOSINOPHILS # (AUTO) 0.2 10^3/uL (0.0-0.7); EOSINOPHILS % (AUTO) 5.9 %; HCT - HEMATOCRIT 39.9 % (42.0-52.0); HGB - HEMOGLOBIN 13.5 g/dL (14.0-18.0); LYMPHOCYTES # (AUTO) 1.2 10^3/uL (1.5-3.5); LYMPHOCYTES % (AUTO) 34.4 %; MEAN CORPUSCULAR HEMOGLOBIN 30.2 pg (27.0-31.0); MEAN CORPUSCULAR HGB CONC 33.9 g/dL (32.0-36.0); MEAN CORPUSCULAR VOLUME 89.2 fL (80.0-94.0); MEAN PLATELET VOLUME 8.2 fL (7.4-11.4); MONOCYTES # (AUTO) 0.4 10^3/uL (0.0-1.0); MONOCYTES % (AUTO) 10.9 %; NEUTROPHILS # (AUTO) 1.6 10^3/uL (1.5-6.6); NEUTROPHILS % (AUTO) 47.5 %; NUCLEATED RED BLOOD CELLS AUTO 0.1 /100WBC; RED BLOOD COUNT 4.47 10^6/uL (4.70-6.10); RED CELL DISTRIBUTION WIDTH 12.3 % (12.0-15.0); UNCORRECTED WHITE BLOOD COUNT 3.4 x10^3/uL; WHITE BLOOD COUNT 3.4 x10^3/uL (4.8-10.8)
[2017-07-16 06:20] LABS: ALBUMIN/GLOBULIN RATIO 1.1 (1.0-2.2); BILIRUBIN,TOTAL 0.3 mg/dL (0.2-1.0); CALCIUM 8.9 mg/dL (8.5-10.3); CREATININE 0.9 mg/dL (0.6-1.2); POTASSIUM 3.6 mmol/L (3.5-5.0); TOTAL PROTEIN 6.9 g/dL (6.7-8.2)
[2017-07-16] MEDS: SODIUM CHLORIDE FLUSH 0.9% 10 ML SYRINGE IVP SCH ×4 (06:39→20:28)
--- NOTE | 2017-07-16 08:49 | PROVIDER PROGRESS NOTE ---
Subjective - Prog Note Date Prog Note Date: 07/16/17 Prog Note Time: 08:49 - Subjective Pt reports feeling: Improved Subjective: Marciano complains of ongoing insomnia. He denies chest pain, SOB, N/V or a new cough. Abdominal pain is becoming less each day. Current Medications - Current Medications Current Medications: Active Medications Acetaminophen (Tylenol) 650 mg PO Q4HR PRN PRN Reason: Pain or Fever > 38C (100.4F) Last Admin: 07/16/17 16:29 Dose: 650 mg Amlodipine Besylate (Norvasc) 5 mg PO DAILY [facility] Last Admin: 07/16/17 09:35 Dose: 5 mg Diazepam (Valium) 5 mg PO Q8H PRN PRN Reason: PAIN Last Admin: 07/15/17 22:32 Dose: 5 mg Hydromorphone HCl (Dilaudid Inj Syringe) 0.5 mg IVP Q2H PRN PRN Reason: PAIN Last Admin: 07/16/17 10:07 Dose: 0.5 mg Sodium Chloride (Normal Saline 0.9%) 1,000 mls @ 125 mls/hr IV .Q8H [facility] Last Admin: 07/16/17 13:24 Dose: 125 mls/hr Piperacillin Sod/Tazobactam (Sod 3.375 gm/ Sodium Chloride) 100 mls @ 200 mls/ hr IV Q6H [facility] Last Infusion: 07/16/17 18:26 Dose: Infused Acetaminophen (Ofirmev) 100 mls @ 400 mls/hr IV Q6HR PRN PRN Reason: PAIN Last Infusion: 07/14/17 18:12 Dose: Infused Ondansetron HCl (Zofran Odt) 4 mg TL Q6H PRN PRN Reason: Nausea / Vomiting Oxycodone HCl (Roxicodone) 10 mg PO Q4H PRN PRN Reason: PAIN Last Admin: 07/14/17 21:27 Dose: 10 mg Oxymetazoline HCl (Afrin) 2 sprays ROX BID [facility] Stop: 07/17/17 13:59 Last Admin: 07/16/17 10:07 Dose: 2 sprays Polyethylene Glycol (Miralax) 17 gm PO DAILY [facility] Last Admin: 07/16/17 10:07 Dose: Not Given Saccharomyces Boulardii (Florastor) 500 mg PO BIDWM [facility] Last Admin: 12/22/17 16:30 Dose: 500 mg Sodium Chloride (Normal Saline Flush 0.9%) 10 ml IVP PRN PRN PRN Reason: NEEDED PER PROVIDER ORDERS Sodium Chloride (Normal Saline Flush 0.9%) 10 ml IVP Q8HR [facility] Last Admin: 07/16/17 14:23 Dose: Not Given Sodium Chloride ([place]) 2 sprays ROX Q4HR PRN PRN Reason: Nasal Congestion Trazodone HCl (Desyrel) 100 mg PO QPM PRN PRN Reason: Insomnia Last Admin: 07/15/17 22:32 Dose: 100 mg diazePAM [Diazepam] 5 mg PO Q8H PRN 07/13/17 Objective - Vital Signs/Intake & Output Reviewed Vital Signs: Yes Intake & Output: Intake & Output 07/13/17 07/14/17 07/15/17 07/16/17 23:59 23:59 23:59 23:59 Intake Total 1100 5170 5890 1072.917 Balance 1100 5170 5890 1072.917 - Objective General Appearance: positive: No acute distress, Alert Eyes Bilateral: positive: Normal inspection ENT: positive: ENT inspection nml, Pharynx nml, No signs of dehydration Neck: positive: Nml inspection, Thyroid nml, No JVD, Trachea midline Respiratory: positive: Chest non-tender, No respiratory distress, Breath sounds nml Cardiovascular: positive: Regular rate & rhythm, No murmur, No gallop Peripheral Pulses: 2+ Radial (R), 2+ Radial (L) Abdomen: positive: Non-tender, No organomegaly, Nml bowel sounds, No distention Back: positive: Nml inspection Skin: positive: Color nml, No rash, Warm, Dry Extremities: positive: Non-tender, Full ROM, Nml appearance, No pedal edema Neurologic/Psychiatric: positive: Oriented x3, CN's nml (2-12), Motor nml, Sensation nml Reflexes: Bicep (R): 3+, Bicep (L): 3+ - Lab Results Fish Bones: 07/16/17 05:43 07/16/17 05:43 Other Labs: Lab Results x24hrs 07/16/17 07/16/17 Range/Units 05:43 05:43 WBC 3.4 L (4.8-10.8) x10^3/uL RBC 4.47 L (4.70-6.10) 10^6/uL Hgb 13.5 L (14.0-18.0) g/dL Hct 39.9 L (42.0-52.0) % MCV 89.2 (80.0-94.0) fL MCH 30.2 (27.0-31.0) pg MCHC 33.9 (32.0-36.0) g/dL RDW 12.3 (12.0-15.0) % Plt Count 262 (130-450) 10^3/uL MPV 8.2 (7.4-11.4) fL Neut # 1.6 (1.5-6.6) 10^3/uL Lymph # 1.2 L (1.5-3.5) 10^3/uL [place] # 0.4 (0.0-1.0) 10^3/uL Eos # 0.2 (0.0-0.7) 10^3/uL Baso # 0.0 (0.0-0.1) 10^3/uL Absolute Nucleated RBC 0.00 x10^3/uL Nucleated RBC % 0.1 /100WBC Sodium 141 (135-145) mmol/L Potassium 3.6 (3.5-5.0) mmol/L Chloride 107 (101-111) mmol/L Carbon Dioxide 28 (21-32) mmol/L Anion Gap 6.0 (6-13) BUN 5 L (6-20) mg/dL Creatinine 0.9 (0.6-1.2) mg/dL Estimated GFR (MDRD) 86 L (>89) Glucose 100 (70-100) mg/dL Calcium 8.9 (8.5-10.3) mg/dL Total Bilirubin 0.3 (0.2-1.0) mg/dL AST 40 (10-42) IU/L ALT 59 (10-60) IU/L Alkaline Phosphatase 45 (42-121) IU/L Total Protein 6.9 (6.7-8.2) g/dL Albumin 3.6 (3.2-5.5) g/dL Globulin 3.3 (2.1-4.2) g/dL Albumin/Globulin Ratio 1.1 (1.0-2.2) - Diagnostic Imaging Diagnostic Imaging Results: positive: Final report reviewed Assessment/Plan - Problem List (1) Diverticulitis Impression: Per abdominal/pelvic CT it showed increasing length of the abnormal colon now involving the distal descending colon and proximal sigmoid colon consistent with extension of diverticulitis. Atypical for nonobstructing malignancy. No evidence of perforation nor abscess. Increasing left upper quadrant and left lower quadrant mesenteric edema and shotty mesenteric adenopathy. New trace amount of free pelvic fluid. Plan: Continue with IV zosyn and manage pain. Abdominal/pelvis CT for AM. (2) Abdominal pain Impression: Patient continues to have pain mostly located in LUQ and LLQ. This is slowly improved since the time of admission, less guarding noticed upon palpation. Plan: Continue to control with IV hydromorphone. Full liquid tolerated well, so patient will be advanced to soft today. (3) KRIS (obstructive sleep apnea) Impression: Patient has had this for several years and does not have a large neck circumference. Patient states he is compliant with home CPAP, although is over due for a controlled sleep study test in the lab. Plan: Home unit delivered and patient has been compliant with wearing it at night without oxygen bleed in. (4) Calculus of kidney Impression: Per CT scan results, renal cysts, right renal lithiasis. No obstructive uropathy. Patient has no CVA tenderness upon exam. No hematuria noted. Plan: Monitor and control symptoms as needed. (5) Hypertension Impression: Blood pressure was 152/90 and 157/103 with ongoing headaches. Patient admits to a history of taking hydralazine in the past, but he got tired of taking it, so stopped. Plan: Norvasc 5mg daily was started and patient is tolerating well. We will continue to monitor blood pressure. [facility] 96 hour ATTESTATION: In good bonita I feel that the patient is reasonably expected to be discharged and/or transferred to another hospital within 96 hours.
[2017-07-16] MEDS: SACCHAROMYCES BOULARDII 250 MG CAPSULE PO SCH ×2 (09:35→16:30)
[2017-07-16] MEDS: amLODIPine 5 MG TABLET PO SCH (09:35)
[2017-07-16] MEDS ORDERED: HYDROmorphone 1 MG/ML SYRINGE IVP PRN (10:00)
[2017-07-16] MEDS: OXYMETAZOLINE NASAL SPRAY NAS SCH ×2 (10:07→20:28)
[2017-07-16] MEDS: POLYETHYLENE GLYCOL 3350 17 GM PACKET PO SCH (10:07)
[2017-07-16] MEDS: ACETAMINOPHEN 325 MG TABLET PO PRN (16:29)
[2017-07-16] MEDS: diazePAM 5 MG TABLET PO PRN (20:28)
[2017-07-16] MEDS: traZODone 50 MG TABLET PO PRN (20:28)
[2017-07-17] MEDS: ACETAMINOPHEN 325 MG TABLET PO PRN (00:47)
[2017-07-17] MEDS: PIPERACILLIN/TAZOBACTAM 3.375 GM in SODIUM CHLORIDE 0.9% MINIBAG 100 ML IV SCH ×2 (02:46→08:08)
[2017-07-17] MEDS: SODIUM CHLORIDE 0.9% 1,000 ML IV SCH ×2 (05:15→12:32)
[2017-07-17] MEDS: SODIUM CHLORIDE FLUSH 0.9% 10 ML SYRINGE IVP SCH (05:18)
[2017-07-17 06:25] LABS: BASOPHILS % (AUTO) 1.1 %; EOSINOPHILS # (AUTO) 0.2 10^3/uL (0.0-0.7); EOSINOPHILS % (AUTO) 5.4 %; HCT - HEMATOCRIT 40.3 % (42.0-52.0); HGB - HEMOGLOBIN 13.8 g/dL (14.0-18.0); LYMPHOCYTES # (AUTO) 1.5 10^3/uL (1.5-3.5); LYMPHOCYTES % (AUTO) 39.2 %; MEAN CORPUSCULAR HEMOGLOBIN 30.2 pg (27.0-31.0); MEAN CORPUSCULAR HGB CONC 34.2 g/dL (32.0-36.0); MEAN CORPUSCULAR VOLUME 88.5 fL (80.0-94.0); MEAN PLATELET VOLUME 8.2 fL (7.4-11.4); MONOCYTES # (AUTO) 0.4 10^3/uL (0.0-1.0); NEUTROPHILS # (AUTO) 1.6 10^3/uL (1.5-6.6); NEUTROPHILS % (AUTO) 43.3 %; NUCLEATED RED BLOOD CELLS AUTO 0.1 /100WBC; RED BLOOD COUNT 4.55 10^6/uL (4.70-6.10); RED CELL DISTRIBUTION WIDTH 12.4 % (12.0-15.0); UNCORRECTED WHITE BLOOD COUNT 3.8 x10^3/uL; WHITE BLOOD COUNT 3.8 x10^3/uL (4.8-10.8)
[2017-07-17 06:30] LABS: ALBUMIN/GLOBULIN RATIO 1.2 (1.0-2.2); BILIRUBIN,TOTAL 0.5 mg/dL (0.2-1.0); CREATININE 0.9 mg/dL (0.6-1.2); POTASSIUM 3.2 mmol/L (3.5-5.0); TOTAL PROTEIN 6.5 g/dL (6.7-8.2)
[2017-07-17] MEDS ORDERED: IOPAMIDOL-300 100 ML VIAL ONE (08:29)
[2017-07-17] MEDS: amLODIPine 5 MG TABLET PO SCH (09:09)
[2017-07-17] MEDS: OXYMETAZOLINE NASAL SPRAY NAS SCH (09:09)
[2017-07-17] MEDS: SACCHAROMYCES BOULARDII 250 MG CAPSULE PO SCH (09:09)
[2017-07-17] MEDS: POLYETHYLENE GLYCOL 3350 17 GM PACKET PO SCH (09:10)
[2017-07-17] MEDS ORDERED: IOPAMIDOL-300 100 ML VIAL IVP ONE (09:14)
--- NOTE | 2017-07-17 10:21 | CT Preliminary Report ---
Exam: CT ABDOMEN/PELVIS W/ IMPRESSION: Comparison CT 07/13/2017. 1. Decreased mild segmental distal descending colonic wall thickening and pericolic stranding suggest ing partially improved diverticulitis. No evidence of perforation or abscess. 2. Other findings as noted above. [facility] SITE ID: [id number]
--- NOTE | 2017-07-17 10:23 | CT Report ---
EXAM: CT ABDOMEN AND PELVIS EXAM DATE: 07/17/2017 09:15 AM. CLINICAL HISTORY: Diverticulitis. COMPARISONS: None. TECHNIQUE: Routine helical CT imaging was performed through the abdomen and pelvis. IV contrast: 06/25 CT. Enteric contrast: No. Reconstructions: Coronal and sagittal. In accordance with CT protocol optimization, one or more of the following dose reduction techniques w ere utilized for this exam: automated exposure control, adjustment of mA and/or KV based on patient s ize, or use of iterative reconstructive technique. FINDINGS: Lung Bases: Unremarkable. Liver: Stable few scattered discrete hepatic hypodensities, suggestive of cysts. No new liver lesions . Gallbladder/Bile Ducts: Moderate gallbladder distention without secondary signs of inflammation. No d uctal enlargement. Spleen: Normal. Pancreas: Normal. Adrenal Glands: Normal. Kidneys: Stable bilateral renal cortical hypodensities, statistically simple cysts. No hydronephrosis . No solid renal mass. Probable punctate lower pole nonobstructing right renal calculus. Peritoneal Cavity/Bowel: Decreased mild segmental distal descending colonic wall thickening and peric olonic stranding with evidence of multiple inflamed diverticula in this region. No organized fluid co llection. No free air. No free fluid. The appendix is well visualized and normal. Similar increased numbers of small central mesenteric lymph nodes, probably reactive. Pelvic Organs: Normal. The bladder and visualized pelvic organs are within normal limits. Vasculature: No aneurysms or other significant abnormality. Bones: No significant abnormality. Other: None. IMPRESSION: Comparison CT 07/13/2017. 1. Decreased mild segmental distal descending colonic wall thickening and pericolic stranding suggest ing partially improved diverticulitis. No evidence of perforation or abscess. 2. Other findings as noted above. [facility] Referring Provider Line: [phone] SITE ID: [id number]
[2017-07-17 10:36] LABS: H.PYLORIS NEG QC NEGATIVE (Negative); H.PYLORIS POS QC POSITIVE (Positive)
--- NOTE | 2017-07-17 11:44 | DISCHARGE SUMMARY ---
Discharge Summary Admit Date: 07/13/17 Discharge Date: 07/17/17 Discharging Provider: LEANNA Neville Primary Care Provider: Susan Pichardo Code Status: Attempt Resuscitation Condition at Discharge: Fair Discharge Disposition: 01 Home, Self Care - DIAGNOSES Admission Diagnoses: Diverticulitis of intestine, part unspecified, without perforation or abscess without bleeding (K57.92) Unspecified abdominal pain (R10.9) Obstructive sleep apnea (G47.33) Calculus of kidney (N20.0) Discharge Diagnoses with Status of Each Condition: Diverticulitis (K57.92)-ongoing and improved per CT scan, continue antibiotic treatment. H. pylori infection (A04.8)- Newly discovered, oral antibiotic treatment and PPI. Intractable abdominal pain (R10.9) -ongoing, but improved. Narcotic prescription for home. Hypertension, uncontrolled (I10)-ongoing, unresolved. Increased medications for home. KRIS (obstructive sleep apnea) (G47.33) -ongoing, stable. Compliant use of CPAP. Right kidney stone (N20.0)-ongoing, stable. Has not caused patient problems. - HPI History of Present Illness: Marciano Guillen is a 62-year old male with a past medical history of chronic headaches, HTN, hyperlipidemia, bilarteral knee arthroscopic surgery, chronic low back pain, hydrocele, KRIS-compliant with home CPAP, ADD, marijuana use, depression-in remission, and diverticulitis. His symptoms started on Wednesday ( 7 days ago) and included, weakness, fatigue, sweats, chills, diarrhea, anorexia , nausea and increased sleep. He claims that he found some relief if he was in the " position", and by taking pepto-bismol. Finally by day #4 of ongoing symptoms, his convinced him to go to his PCP, who diagnosed diverticulitis on 07/09/17 and prescribed Cipro PO. Patient admitted to feel somewhat better by the next day, but then on day 5 became progressively worse until he presented to the ED today with a primary complaint of severe LLQ pain, inability to eat and he notes "feeling cold". A abdominal/pelvis CT was completed which confirmed a worsening of his diverticulitis, now with free fluid in his pelvic cavity. General surgery was notified and recommended no surgical intervention at this time. He will be admitted as inpatient for IV antibiotics, pain and symptom control with General surgery available if needed. - HOSPITAL COURSE Hospital Course: Marciano had an eventful stay while in the hospital as a few new problems cropped up, including uncontrolled hypertension, un-managed migraines, and a new discovery of H. Pylori. Patient has a history of migraines, and he found some relief as he was treated for his abdominal pain. Photophobia was apparent. During the entire hospital stay, Marciano was considered "hypertensive", which could have been exacerbated by acute illness. He was started on Norvasc 5mg PO daily, that was increased to BID on discharge. Marciano was compliant with his KRIS by bringing in his home CPAP unit and wearing it each night. He was prescribed trazadone for hospital induced insomnia that may have helped and Marciano was encouraged to give this a try at home to have more restful nights. [id number] time of greater than 60 minutes, both with my patient, Marciano and his main support, , Fannie was spent for patient exam, teaching, addressing questions, etc. Patient was in stable condition and discharged home with via private car. - ALLERGIES Allergies/Adverse Reactions: Allergies Allergy/AdvReac Type Severity Reaction Status Date / Time albuterol Allergy Respiratory Verified 12/12/14 10:20 Sulfa (Sulfonamide Allergy Unknown Verified 12/12/14 10:20 Antibiotics) - MEDICATIONS Home Medications: Ambulatory Orders Medication Instructions Recorded Confirmed Ondansetron Odt [Zofran Odt] 4 mg TL Q6H PRN #10 tablet 12/12/14 07/13/17 diazePAM [Diazepam] 5 mg PO Q8H PRN 07/13/17 07/13/17 Amoxicillin 1,000 mg PO BID 14 Days #28 capsule 07/17/17 Clarithromycin 500 mg PO BID 14 Days #28 tablet 07/17/17 Lactobacillus Acidophilus 1 each PO BID #60 capsule 07/17/17 [Probiotic Gold Acidophilus] Lansoprazole 30 mg PO BID 14 Days #28 nuzhat. 07/17/17 Lansoprazole/Amoxiciln/Clarith 1 each PO BID 14 Days #28 07/17/17 [Pypeplyuumg-Ercossqb-Ahfxqkbde] combo..pkg Moxifloxacin [Avelox] 400 mg PO DAILY 14 Days #14 tablet 07/17/17 Oxycodone HCl/Acetaminophen 1 - 2 each PO Q6H PRN #20 tablet 07/17/17 [Percocet 5-325 mg Tablet] Pantoprazole [Protonix] 40 mg PO BID #60 tablet 07/17/17 amLODIPine [Norvasc] 5 mg PO BID #60 tablet 07/17/17 traZODone [Desyrel] 100 mg PO QPM PRN #30 tablet 07/17/17 - PHYSICAL EXAM AT DISCHARGE General Appearance: positive: No acute distress, Alert Eyes Bilateral: positive: Normal inspection, PERRL ENT: positive: ENT inspection nml, Pharynx nml, No signs of dehydration Neck: positive: Nml inspection, Thyroid nml, No JVD, Trachea midline Respiratory: positive: Chest non-tender, No respiratory distress, Breath sounds nml Cardiovascular: positive: Regular rate & rhythm, No murmur, No gallop Peripheral Pulses: positive: 2+ Abdomen: positive: Tenderness, Guarding, Abnml bowel sounds, Other (pain on LLQ , LUQ.) Back: positive: Nml inspection Skin: positive: Color nml, No rash, Warm, Dry Extremities: positive: Non-tender, Full ROM, Nml appearance, No pedal edema Neurologic/Psychiatric: positive: Oriented x3, CN's nml (2-12), Motor nml, Sensation nml, Depressed mood/affect Reflexes: Bicep (R): 4+, Bicep (L): 4+ - LABS Result Diagrams: 07/17/17 05:44 07/17/17 05:44 - DIAGNOSTIC IMAGING Diagnostic Imaging Results: Final report reviewed Diagnostic Imaging Results Comments: Abdominal/Pelvis CT W/O oral contrast 07/13/17: FINDINGS: Lung Bases: Unremarkable. Liver: Several dozen 3 cm and smaller hepatic cysts. Gallbladder/Bile Ducts: Unremarkable. Spleen: Normal. Pancreas: Normal. Adrenal Glands: Normal. Kidneys: 3.5 cm and smaller renal cysts bilaterally with several left parapelvic cysts. No hydronephrosis allowing for such. Both ureters are small in caliber. 2 mm stone in the inferior right renal calyx unchanged. No solid mass lesions. Peritoneal Cavity/Bowel: Previously, 5 cm segment of abnormal distal descending colon. The length of colon wall thickening, small amount of adjacent mesenteric edema and linear fluid collections has increased to 15 cm in length now extending from the junction of the mid and inferior third descending colon distally to involve the proximal third sigmoid colon. Multiple inflamed diverticuli in this region. No extraluminal air nor abscess. Slight increase in nonspecific mesenteric edema left upper quadrant and left lower quadrant. Interval decreasing caliber of a left upper quadrant mesenteric lymph node previously measuring 1.7 x 1.0 cm, now measuring 0.7 cm in maximum cross-sectional diameter. Overall, increasing shotty mesenteric adenopathy on the left. Large and small bowel unremarkable. The appendix is well visualized and normal. Pelvic Organs: New trace amount of free fluid. No stones in the small caliber urinary bladder. Prostate normal caliber. Rectum is normal. Small bilateral fat- containing inguinal hernias. Vasculature: No aneurysms or other significant abnormality. Bones: No significant abnormality. Other: None. IMPRESSION: 1. Increasing length of the abnormal colon now involving the distal descending colon and proximal sigmoid colon consistent with extension of diverticulitis. Full differential would include colitis, pseudomembranous colitis, ischemia, inflammatory bowel disease. Atypical for nonobstructing malignancy. No evidence of perforation nor abscess. 2. Increasing left upper quadrant and left lower quadrant mesenteric edema and shotty mesenteric adenopathy. 3. New trace amount of free pelvic fluid. 4. Hepatic and renal cysts. 5. Right renal lithiasis. No obstructive uropathy. Abdominal/Pelvis CT W/O oral contrast 07/17/17: FINDINGS: Lung Bases: Unremarkable. Liver: Stable few scattered discrete hepatic hypodensities, suggestive of cysts. No new liver lesions. Gallbladder/Bile Ducts: Moderate gallbladder distention without secondary signs of inflammation. No ductal enlargement. Spleen: Normal. Pancreas: Normal. Adrenal Glands: Normal. Kidneys: Stable bilateral renal cortical hypodensities, statistically simple cysts. No hydronephrosis. No solid renal mass. Probable punctate lower pole nonobstructing right renal calculus. Peritoneal Cavity/Bowel: Decreased mild segmental distal descending colonic wall thickening and pericolonic stranding with evidence of multiple inflamed diverticula in this region. No organized fluid collection. No free air. No free fluid. The appendix is well visualized and normal. Similar increased numbers of small central mesenteric lymph nodes, probably reactive. Pelvic Organs: Normal. The bladder and visualized pelvic organs are within normal limits. Vasculature: No aneurysms or other significant abnormality. Bones: No significant abnormality. Other: None. IMPRESSION: Comparison CT 07/13/2017. 1. Decreased mild segmental distal descending colonic wall thickening and pericolic stranding suggesting partially improved diverticulitis. No evidence of perforation or abscess. 2. Other findings as noted above. - FOLLOW UP Follow Up: You were admitted inpatient due to failed out patient treatment. During your stay you were primarily treated for: 1) Diverticulitis 2) Hypertension 3) Pain control To continue with treatment of your diverticulitis please continue with Moxifloxacin daily x14 days. I recommend taking another 14 tablets with you as you plan for your trip out of the country. The follow up CT scan shows improvement and no free air as the previous scan noted. A stool sample was obtained due to complaints of ongoing diarrhea: The H. Pylori stool test is positive. Treatment for this by using a PPI- double dose, twice per day and an antibiotic called Pylera for 14 days. A colonoscopy is recommended 4 weeks following completion of antibiotic for H. Pylori treatment which would be ~ 08/31/2017. Hypertension can be deadly, or cause an irreversible event (stroke or heart attack) if left untreated. Your blood pressure while in the hospital ranged from 135-184 systolic and 77-103 diastolic. Please continue to take Norvasc, now twice daily. See your PCP in the next 3-5 days as a follow up to this hospital stay. See a general surgeon Ronaldo Casas MD to talk about your 2 bowel disorders ( infections) and what is a reasonable time to complete a colonoscopy and/or EGD. Complete all medications as prescribed. Rest more than you normally would, as you were just in the hospital and your body still needs time to recuperative. - TIME SPENT Time Spent in Discharge (Minutes): 60
--- NOTE | 2017-07-17 12:00 | Discharge Plan ---
Discharge Plan Disposition: Home, Self Care Condition: Fair Prescriptions: amLODIPine [Norvasc] 5 mg PO BID #60 tablet Lactobacillus Acidophilus [Probiotic Gold Acidophilus] 1 each PO BID #60 capsule Lansoprazole/Amoxiciln/Clarith [Fnxuqiywmqy-Wyvqwnao-Ngjdhasrb] 1 each PO BID 14 Days #28 combo..pkg Moxifloxacin [Avelox] 400 mg PO DAILY 14 Days #14 tablet Oxycodone HCl/Acetaminophen [Percocet 5-325 mg Tablet] 1 - 2 each PO Q6H PRN # 20 tablet PRN Reason: Pain Pantoprazole [Protonix] 40 mg PO BID #60 tablet traZODone [Desyrel] 100 mg PO QPM PRN #30 tablet PRN Reason: Insomnia Diet: Soft Activity Restrictions: No Restrictions Shower Restrictions: No Driving Restrictions: No Weight Bearing: Full Weight Additional Instructions or Follow Up instructions: You were admitted inpatient due to failed out patient treatment. During your stay you were primarily treated for: 1) Diverticulitis 2) Hypertension 3) Pain control To continue with treatment of your diverticulitis please continue with Moxifloxacin daily x14 days. I recommend taking another 14 tablets with you as you plan for your trip out of the country. The follow up CT scan shows improvement and no free air as the previous scan noted. A stool sample was obtained due to complaints of ongoing diarrhea: The H. Pylori stool test is positive. Treatment for this by using a PPI- double dose, twice per day and an antibiotic called Pylera for 14 days. A colonoscopy is recommended 4 weeks following completion of antibiotic for H. Pylori treatment which would be ~ 08/31/2017. Hypertension can be deadly, or cause an irreversible event (stroke or heart attack) if left untreated. Your blood pressure while in the hospital ranged from 135-184 systolic and 77-103 diastolic. Please continue to take Norvasc, now twice daily. See your PCP in the next 3-5 days as a follow up to this hospital stay. See a general surgeon Ronaldo Casas MD to talk about your 2 bowel disorders ( infections) and what is a reasonable time to complete a colonoscopy and/or EGD. Complete all medications as prescribed. Rest more than you normally would, as you were just in the hospital and your body still needs time to recuperative. Follow-Up Care: [facility] No Smoking: If you smoke, Please STOP! Call for help. Follow-up with: Susan Pichardo PA-C [Primary Care Provider] -
[2017-07-17 12:34] VITALS: BP 153/93
== END 2017-07-17 14:28 | disposition home or self-care (01) | DRG 392 ==
LOC: ED 11:04 → MS2 14:34
PROVIDERS: ADMIT Nurse Practitioner; ATTEND Nurse Practitioner
DX: K57.32 Diverticulitis of large intestine without perforation or abscess without bleeding (principal); A04.8 Other specified bacterial intestinal infections; I10 Essential (primary) hypertension; N20.0 Calculus of kidney; G47.33 Obstructive sleep apnea (adult) (pediatric); G43.909 Migraine, unspecified, not intractable, without status migrainosus; G47.00 Insomnia, unspecified; E78.5 Hyperlipidemia, unspecified; F90.9 Attention-deficit hyperactivity disorder, unspecified type; M54.9 Dorsalgia, unspecified; G89.29 Other chronic pain; F41.9 Anxiety disorder, unspecified; Z87.442 Personal history of urinary calculi; Z88.2 Allergy status to sulfonamides; Z86.59 Personal history of other mental and behavioral disorders
CPT/HCPCS: 36415; 74177; 80053; 83690; 83735; 84100; 85025; 87015; 87045; 87046; 87272; 87329; 87338; 87493; 87798; 96361; 96365; 96375; 96376; 99283; 99284

== ENCOUNTER 2017-07-27 12:14 | Outpatient (CLI) | payer OTHER ==
[2017-07-27 12:49] LABS: BASOPHILS # (AUTO) 0.1 10^3/uL (0.0-0.1); BASOPHILS % (AUTO) 2.1 %; EOSINOPHILS # (AUTO) 0.2 10^3/uL (0.0-0.7); EOSINOPHILS % (AUTO) 4.1 %; HGB - HEMOGLOBIN 15.3 g/dL (14.0-18.0); LYMPHOCYTES # (AUTO) 1.2 10^3/uL (1.5-3.5); LYMPHOCYTES % (AUTO) 33.6 %; MEAN CORPUSCULAR HGB CONC 34.8 g/dL (32.0-36.0); MEAN PLATELET VOLUME 8.6 fL (7.4-11.4); MONOCYTES # (AUTO) 0.6 10^3/uL (0.0-1.0); MONOCYTES % (AUTO) 15.2 %; NEUTROPHILS # (AUTO) 1.7 10^3/uL (1.5-6.6); PLT - PLATELET COUNT 249 10^3/uL (130-450); RED BLOOD COUNT 4.94 10^6/uL (4.70-6.10); RED CELL DISTRIBUTION WIDTH 12.8 % (12.0-15.0); WHITE BLOOD COUNT 3.7 x10^3/uL (4.8-10.8)
[2017-07-27 13:06] LABS: ALBUMIN 4.7 g/dL (3.2-5.5); ALBUMIN/GLOBULIN RATIO 1.4 (1.0-2.2); ALKALINE PHOSPHATASE 61 IU/L (42-121); ALT ALANINE AMINOTRANSFERASE 42 IU/L (10-60); AST ASPARTATE AMINOTRANSFERASE 26 IU/L (10-42); BILIRUBIN,TOTAL 0.7 mg/dL (0.2-1.0); BUN - BLOOD UREA NITROGEN 13 mg/dL (6-20); CALCIUM 9.8 mg/dL (8.5-10.3); CARBON DIOXIDE - CO2 29 mmol/L (21-32); CHLORIDE 100 mmol/L (101-111); GFR - MDRD 76 (>89); GLUCOSE 107 mg/dL (70-100); SODIUM 137 mmol/L (135-145); TOTAL PROTEIN 8.1 g/dL (6.7-8.2)
[2017-07-27 13:07] LABS: CRP - C-REACTIVE PROTEIN < 1.0 mg/dL (0-1.0)
== END 2017-07-27 12:15 | disposition home or self-care (01) ==
LOC: LAB 12:14
PROVIDERS: ATTEND Physician Assistant Medical
DX: K57.92 Diverticulitis of intestine, part unspecified, without perforation or abscess without bleeding (principal)
CPT/HCPCS: 36415; 80053; 85025; 85651; 86140

== ENCOUNTER 2017-07-27 13:52 | Outpatient (CLI) | payer OTHER ==
[2017-07-27] MEDS ORDERED: IOPAMIDOL-300 100 ML VIAL ONE (14:10)
[2017-07-27] MEDS ORDERED: IOPAMIDOL-300 50 ML VIAL ONE (14:10)
[2017-07-27] MEDS ORDERED: IOPAMIDOL-300 50 ML VIAL PO ONE (16:41)
[2017-07-27] MEDS ORDERED: IOPAMIDOL-300 100 ML VIAL IVP ONE (16:41)
--- NOTE | 2017-07-27 17:41 | CT Report ---
EXAM: CT ABDOMEN AND PELVIS EXAM DATE: 07/27/2017 04:59 PM. CLINICAL HISTORY: DIVERTICULITIS, ACUTE. COMPARISONS: 07/17/2017. TECHNIQUE: Routine helical CT imaging was performed through the abdomen and pelvis. IV contrast: 100M L ISOVUE 300. Enteric contrast: No. Reconstructions: Coronal and sagittal. In accordance with CT protocol optimization, one or more of the following dose reduction techniques w ere utilized for this exam: automated exposure control, adjustment of mA and/or KV based on patient s ize, or use of iterative reconstructive technique. FINDINGS: Lung Bases: Clear. No pleural effusion. Liver: Moderate hepatic hypodensities unchanged compared to prior, possibly small cysts or hemangioma s. Gallbladder/Bile Ducts: Unremarkable. Spleen: Normal. Pancreas: Normal. Adrenal Glands: Normal. Kidneys: Renal cortical hypodensities are unchanged, the larger lesions are compatible with cysts, th e smaller sub-centimeters lesions are too small to definitively characterize. Left-sided peripelvic c ysts also noted. No enhancing masses. No hydronephrosis. Peritoneal Cavity/Bowel: Continued decrease in the wall thickening and hyperemia surrounding the dist al descending and proximal sigmoid colon, compatible with continued decrease in the diverticulitis. N o evidence for perforation or abscess. No evidence for pneumoperitoneum or ascites. Normal caliber po wel loops without signs of obstruction. No enlarged intraperitoneal or retroperitoneal lymph nodes. T he appendix is well visualized and normal. Pelvic Organs: Normal. The bladder and visualized pelvic organs are within normal limits. Vasculature: Scattered atheromatous calcifications without aneurysms. Bones: No significant abnormality. Other: Fat-containing bilateral inguinal hernias are evident. IMPRESSION: 1. Continued decrease in the inflammation affecting the distal descending and proximal sigmoid colon, compatible with continued improvement in diverticulitis. No evidence for new perforation or abscess. 2. Otherwise as above. RADIA The call report notification system was initiated by Dr. Alec Marcus at 17:36 hrs on 07/27/17. The above findings were discussed with ANA Agosto by Dr. Alec Marcus at 17:39 hrs on 07/27/17. Referring Provider Line: [phone] SITE ID: [id number]
== END 2017-07-27 13:53 | disposition home or self-care (01) ==
LOC: DI 13:52
PROVIDERS: ATTEND Physician Assistant Medical
DX: K57.32 Diverticulitis of large intestine without perforation or abscess without bleeding (principal)
CPT/HCPCS: 74177; Q9967; 36415; 80053; 85025; 85651; 86140

== ENCOUNTER 2017-09-24 08:00 | Outpatient (CLI) | payer OTHER ==
[2017-09-24 09:58] LABS: H. PYLORIS ANTIGEN STL NEGATIVE (Negative)
== END 2017-09-24 08:01 | disposition home or self-care (01) ==
LOC: LAB.R 08:00
PROVIDERS: ATTEND Neurological Surgery
DX: A04.8 Other specified bacterial intestinal infections (principal)
CPT/HCPCS: 87338

== ENCOUNTER 2017-12-30 10:02 | Outpatient (CLI) | payer OTHER | END 2017-12-30 10:03 | disposition home or self-care (01) | LOC: LAB 10:02 | PROVIDERS: ATTEND Physician Assistant Medical | DX: N40.0 Benign prostatic hyperplasia without lower urinary tract symptoms (principal) | CPT/HCPCS: 36415; 84153 ==

== ENCOUNTER 2018-06-09 09:09 | Outpatient (CLI) | payer OTHER ==
[2018-06-09 09:50] LABS: BASOPHILS % (AUTO) 1.2 %; EOSINOPHILS # (AUTO) 0.2 10^3/uL (0.0-0.7); EOSINOPHILS % (AUTO) 5.3 %; HGB - HEMOGLOBIN 15.5 g/dL (14.0-18.0); LYMPHOCYTES # (AUTO) 1.2 10^3/uL (1.5-3.5); LYMPHOCYTES % (AUTO) 32.7 %; MEAN CORPUSCULAR HEMOGLOBIN 31.4 pg (27.0-31.0); MEAN CORPUSCULAR HGB CONC 34.8 g/dL (32.0-36.0); MEAN CORPUSCULAR VOLUME 90.2 fL (80.0-94.0); MEAN PLATELET VOLUME 8.3 fL (7.4-11.4); MONOCYTES # (AUTO) 0.4 10^3/uL (0.0-1.0); NEUTROPHILS # (AUTO) 1.8 10^3/uL (1.5-6.6); NEUTROPHILS % (AUTO) 49.8 %; PLT - PLATELET COUNT 206 10^3/uL (130-450); RED BLOOD COUNT 4.95 10^6/uL (4.70-6.10); RED CELL DISTRIBUTION WIDTH 12.8 % (12.0-15.0); WHITE BLOOD COUNT 3.5 x10^3/uL (4.8-10.8)
[2018-06-09 09:56] LABS: CHOL/HDL RATIO 4.6 (<5.0); CHOLESTEROL 306 mg/dL; HDL CHOLESTEROL 66 mg/dL; LDL CHOLESTEROL,CALCULATED 217 mg/dL; LDL/HDL RATIO 3.3 (<3.6); VLDL CHOLESTEROL 23 mg/dL
[2018-06-09 10:19] LABS: HB2 TOTAL 17.6 g/dL; HEMOGLOBIN A1C 0.65 g/dL; HEMOGLOBIN A1C % 5.5 % (4.6-6.2)
[2018-06-10 09:05] LABS: ALBUMIN 4.6 g/dL (3.2-5.5); ALBUMIN/GLOBULIN RATIO 1.5 (1.0-2.2); ALKALINE PHOSPHATASE 57 IU/L (42-121); ALT ALANINE AMINOTRANSFERASE 46 IU/L (10-60); AST ASPARTATE AMINOTRANSFERASE 29 IU/L (10-42); BILIRUBIN,TOTAL 0.8 mg/dL (0.2-1.0); BUN - BLOOD UREA NITROGEN 19 mg/dL (6-20); CALCIUM 9.5 mg/dL (8.5-10.3); CARBON DIOXIDE - CO2 28 mmol/L (21-32); CHLORIDE 100 mmol/L (101-111); CREATININE 0.9 mg/dL (0.6-1.2); GFR - MDRD 86 (>89); GLUCOSE 100 mg/dL (70-100); SODIUM 137 mmol/L (135-145); TOTAL PROTEIN 7.6 g/dL (6.7-8.2)
== END 2018-06-09 09:10 | disposition home or self-care (01) ==
LOC: LAB 09:09
PROVIDERS: ATTEND Physician Assistant Medical
DX: I10 Essential (primary) hypertension (principal); R73.9 Hyperglycemia, unspecified; E78.2 Mixed hyperlipidemia; Z79.899 Other long term (current) drug therapy
CPT/HCPCS: 36415; 80053; 80061; 83036; 83721; 84443; 85025

== ENCOUNTER 2018-08-23 10:15 | Outpatient (CLI) | payer OTHER | END 2018-08-23 10:16 | disposition home or self-care (01) | LOC: SC 10:15 | PROVIDERS: ATTEND Internal Medicine Pulmonary Disease | DX: G47.33 Obstructive sleep apnea (adult) (pediatric) (principal) | CPT/HCPCS: 99203; 99212 ==

== ENCOUNTER 2021-08-12 08:53 | Outpatient (CLI) | payer OTHER ==
--- NOTE | 2021-08-12 09:45 | CARDIAC PROCEDURE NOTE ---
Stress Test Report Service Date: 08/12/21 Service Time: 09:00 Ordering Provider: Esperanza Cruz PA-C Indication for Test: Assess intermittent non-exertional upper back pain, with some radiation anteriorly. Significant Medical History: Marciano describes a very active lifestyle, that includes walking nearly 2 miles at least every other day (with elevation of 3-400 feet) [place] with good exertional pace and toleration of significant inclines. Over the past 2 years he has had about 6 episodes of (typically) post-exertional upper back tightness, with sense of radiation anteriorly. Some episodes (~3) have been of such intensity that he had to drop down while sensation passes (usually in about 10-20 minutes). There may be associated anxiety, diaphoresis and increased shortness of breath. Symptoms have never occurred with exertion, though some have occurred post-exertion. He believes his stamina remains intact. Cardiac Risk Factors: He has been treated off and on with antihypertensive medication dating back about 10 years, continuously for past 3-4 years. He has a significant family history of coronary artery disease in both sides of the family, with early presentation in his maternal grandmother and paternal grandfather. He reports hyperlipidemia, not currently treated. No history of ever tobacco smoking or diabetes. Type of Stress Test: ETT with Echocardiography Procedure: -Exercise Treadmill Test- After signing informed consent, the patient underwent echo imaging at rest and then performed treadmill exercise using a Carlos protocol. The patient exercised for 9 minutes 1 second and achieved a peak heart rate of 150 (96 percent predicted maximum heart rate for age), and an estimated workload of 10.2 METS. The test was terminated due to fatigue/shortness of breath after target heart rate was achieved. Resting heart rate: 71 Peak heart rate: 150 Normal response to exercise. Resting BP: 188/100 Peak BP: 259/69 Hypertensive at rest with physiologic systolic BP increase and diastolic BP decrease with exercise. Rhythm during exercise: Sinus rhythm throughout, with rare isolated PVCs and brief episodes of ventricular bigeminy, with 5-6 PVCs then resolution (asymptomatic). Symptoms: No chest or upper back discomfort described. EKG at rest showed normal sinus rhythm with probable left atrial abnormality and minimally prolonged DE interval (224 msec). EKG at peak stress showed no ischemia by EKG criteria. In Recovery heart rate rapidly/normally returned toward baseline level; blood pressure decreased more slowly and remained elevated (203/93 at 8 minutes of recovery). Echo imaging performed at rest and with stress will be reported separately. I, Joselo Read MD, was present throughout this treadmill stress study and supervised it in its entirety. Summary: 1) Exercise tolerance somewhat above average for age, as evidenced by DENY of -12%. 2) Normal resting EKG (interpretable QRS/ST/T morphologies). 3) Adequate level of exercise was achieved on this treadmill stress test. 4) Hypertensive baseline BP, with physiologic response to exercise. 5) No ischemic changes by EKG criteria were seen at peak stress. 6) Echo image interpretation reveals normal left ventricular size and systolic function, with appropriate hyperdynamic augmentation of all segments with exercise, indicating no evidence of prior infarct or inducible ischemia. See separate report for more details. PRELIMINARY CONCLUSIONS: 1) Likely low risk ETT results, with no recreation of symptoms and no EKG nor echocardiographic evidence of inducible ischemia. 2) Patient with markedly elevated family history of CAD, reports intolerance to "6-7" statins, red rice yeast and niacin. Also reports having "heart scan" at [facility] (presumably coronary artery calcium scoring) about every 5 years, most recently about 3 years ago. To his knowledge results have remained normal. I recommended that he continue this periodic screening, and if score becomes abnormal, he should be considered for alternative lipid lowering medications (e.g. PCSK-9 inhibitor).
== END 2021-08-12 08:54 | disposition home or self-care (01) ==
LOC: DI 08:53
PROVIDERS: ATTEND Physician Assistant
DX: R06.09 Other forms of dyspnea (principal); E78.5 Hyperlipidemia, unspecified; Z82.49 Family history of ischemic heart disease and other diseases of the circulatory system
CPT/HCPCS: 93016; 93017; 93018; 93350

== ENCOUNTER 2021-09-03 16:51 | Emergency (ER) | payer OTHER ==
[2021-09-03] MEDS ORDERED: ADENOSINE 6 MG/2 ML VIAL IVP STA (17:19)
[2021-09-03 17:22] LABS: BASOPHILS # (AUTO) 0.1 10^3/uL (0.0-0.1); BASOPHILS % (AUTO) 0.7 %; EOSINOPHILS # (AUTO) 0.1 10^3/uL (0.0-0.7); EOSINOPHILS % (AUTO) 1.3 %; HCT - HEMATOCRIT 48.3 % (42.0-52.0); HGB - HEMOGLOBIN 16.6 g/dL (14.0-18.0); LYMPHOCYTES # (AUTO) 2.4 10^3/uL (1.5-3.5); MEAN CORPUSCULAR HEMOGLOBIN 31.4 pg (27.0-31.0); MEAN CORPUSCULAR HGB CONC 34.4 g/dL (32.0-36.0); MEAN CORPUSCULAR VOLUME 91.3 fL (80.0-94.0); MEAN PLATELET VOLUME 10.6 fL (7.4-11.4); MONOCYTES # (AUTO) 0.8 10^3/uL (0.0-1.0); MONOCYTES % (AUTO) 9.8 %; NEUTROPHILS # (AUTO) 4.9 10^3/uL (1.5-6.6); PLT - PLATELET COUNT 224 10^3/uL (130-450); RED BLOOD COUNT 5.29 10^6/uL (4.70-6.10); RED CELL DISTRIBUTION WIDTH 12.4 % (12.0-15.0); WHITE BLOOD COUNT 8.3 x10^3/uL (4.8-10.8)
[2021-09-03 17:32] LABS: ALBUMIN 4.6 g/dL (3.2-5.5); ALBUMIN/GLOBULIN RATIO 1.4 (1.0-2.2); BILIRUBIN,TOTAL 0.6 mg/dL (0.2-1.0); CALCIUM 10.2 mg/dL (8.5-10.3); CREATININE 1.1 mg/dL (0.6-1.2); POTASSIUM 3.5 mmol/L (3.5-5.0); TOTAL PROTEIN 7.9 g/dL (6.7-8.2)
--- NOTE | 2021-09-03 17:48 | XRAY Report ---
PROCEDURE: Chest 1 View X-Ray INDICATIONS: Chest pain TECHNIQUE: One view of the chest was acquired. COMPARISON: 06/06/2013 FINDINGS: Surgical changes and devices: None. Lungs and pleura: No pleural effusions or pneumothorax. Lungs are clear. Mediastinum: Mediastinal contours appear normal. Heart size is normal. Bones and chest wall: No suspicious bony lesions. Overlying soft tissues appear unremarkable. IMPRESSION: No acute cardiopulmonary disease. Reviewed by: Ania Rodriguez MD on 09/03/2021 5:47 PM PST Approved by: Ania Rodriguez MD on 09/03/2021 5:47 PM PST Station ID: [id number]
[2021-09-03] MEDS ORDERED: SODIUM CHLORIDE 0.9% 1,000 ML IV STA (17:53)
--- NOTE | 2021-09-03 17:55 | ED Physician Documentation ---
History of Present Illness - Stated complaint Stated Complaint: CP/DIZZY - Chief complaint Chief Complaint: Cardiac - History obtained from History obtained from: Patient - History of Present Illness Timing: Enter time (1500), Today - Additonal information Additional information: 66-year-old male with a history of prior episodes of rapid heart rate that have spontaneously resolved has developed a rapid heart rate again today. He states this started about 3 PM and he is not having any specific symptoms associated with it he has had this previously resolved spontaneously and he has been asked to come to be seen when it happens so that the nature of the rhythm can be documented. He states he has not been ill recently does not have any specific s ymptoms prior to onset. Review of Systems Constitutional: denies: Fever Eyes: denies: Decreased vision Ears: denies: Ear pain Nose: denies: Congestion Throat: denies: Sore throat Cardiac: reports: Palpitations. denies: Chest pain / pressure, Pedal edema, Calf pain Respiratory: denies: Dyspnea, Cough, Wheezing GI: denies: Abdominal Pain, Nausea, Vomiting : denies: Dysuria, Frequency Skin: denies: Rash Musculoskeletal: denies: Neck pain, Back pain, Extremity pain Neurologic: denies: Generalized weakness, Focal weakness, Numbness PD PAST MEDICAL HISTORY - Past Medical History Past Medical History: Yes Cardiovascular: Hypertension, High cholesterol Respiratory: Sleep apnea, CPAP use, Other Endocrine/Autoimmune: Other GI: Diverticulitis : Nocturia, Kidney stones HEENT: Chronic sinusitis Psych: Depression, Anxiety, ADD/ADHD Musculoskeletal: Fatigue, Chronic back pain, Other Derm: Other - Past Surgical History Past Surgical History: Yes General: Colonoscopy Ortho: Arthroscopic surgery Cardiovascular: Other - Present Medications Home Medications: Ambulatory Orders Medication Instructions Recorded Confirmed Ondansetron Odt [Zofran Odt] 4 mg TL Q6H PRN #10 tablet 12/12/14 07/13/17 diazePAM [Diazepam] 5 mg PO Q8H PRN 07/13/17 07/13/17 Amoxicillin 1,000 mg PO BID 14 Days #28 capsule 07/17/17 Clarithromycin 500 mg PO BID 14 Days #28 tablet 07/17/17 Lactobacillus Acidophilus 1 each PO BID #60 capsule 07/17/17 [Probiotic Gold Acidophilus] Lansoprazole 30 mg PO BID 14 Days #28 capsule. 07/17/17 Lansoprazole/Amoxiciln/Clarith 1 each PO BID 14 Days #28 07/17/17 [Lyecboqvzuc-Ekbertnx-Bvsrcwgzn] combo..pkg Moxifloxacin [Avelox] 400 mg PO DAILY 14 Days #14 tablet 07/17/17 Oxycodone HCl/Acetaminophen 1 - 2 each PO Q6H PRN #20 tablet 07/17/17 [Percocet 5-325 mg Tablet] Pantoprazole [Protonix] 40 mg PO BID #60 tablet 07/17/17 amLODIPine [Norvasc] 5 mg PO BID #60 tablet 07/17/17 traZODone [Desyrel] 100 mg PO QPM PRN #30 tablet 07/17/17 - Allergies Allergies/Adverse Reactions: Allergies Allergy/AdvReac Type Severity Reaction Status Date / Time albuterol Allergy Respiratory Verified 09/03/21 17:06 Sulfa (Sulfonamide Allergy Unknown Verified 09/03/21 17:06 Antibiotics) - Social History Does the pt smoke?: No Smoking Status: Never smoker Does the pt drink ETOH?: No Does the pt have substance abuse?: No - POLST Patient has POLST: No POLST Status: Full Code PD ED PE NORMAL - Vitals Vital signs reviewed: Yes (Marked tachycardia at 173) - General General: Alert and oriented X 3, No acute distress, Well developed/nourished - HEENT HEENT: Atraumatic, PERRL, EOMI - Neck Neck: Supple, no meningeal sign, No bony TTP - Cardiac Cardiac: No murmur, Other (tachy to 150) - Respiratory Respiratory: No respiratory distress, Clear bilaterally - Abdomen Abdomen: Soft, Non tender - Back Back: No CVA TTP, No spinal TTP - Derm Derm: Normal color, No rash - Extremities Extremities: No deformity, No edema - Neuro Neuro: Alert and oriented X 3, arts and sciences dean 2-12 intact, No motor deficit, No sensory deficit, Normal speech Eye Opening: Spontaneous Motor: Obeys Commands Verbal: Oriented GCS Score: 15 - Psych Psych: Normal mood, Normal affect Results - Vitals Vitals: Vital Signs - 24 hr 09/03/21 09/03/21 09/03/21 16:59 17:36 18:36 Temperature 36.2 C L Heart Rate 173 H 93 80 Respiratory 18 19 16 Rate Blood Pressure 121/77 140/113 H 148/100 H O2 Saturation 98 100 100 09/03/21 09/03/21 19:35 20:00 Temperature 36.7 C 36.6 C Heart Rate 79 83 Respiratory 16 17 Rate Blood Pressure 152/95 H 150/103 H O2 Saturation 100 98 Oxygen O2 Source Room air - EKG (time done) 1703 Rate: Rate (enter#) (148) Rhythm: NSR Ischemia: ST depression (consistent with rate) Compare to prior EKG: Old EKG unavailable Computer interpretation: Agree with computer - Labs Labs: Laboratory Tests 09/03/21 09/03/21 09/03/21 17:12 17:12 17:12 WBC 8.3 RBC 5.29 Hgb 16.6 Hct 48.3 MCV 91.3 MCH 31.4 H MCHC 34.4 RDW 12.4 Plt Count 224 MPV 10.6 Neut # (Auto) 4.9 Lymph # (Auto) 2.4 [place] # (Auto) 0.8 Eos # (Auto) 0.1 Baso # (Auto) 0.1 Absolute Nucleated RBC 0.00 Nucleated RBC % 0.0 Sodium 139 Potassium 3.5 Chloride 103 Carbon Dioxide 25 Anion Gap 11.0 BUN 25 H Creatinine 1.1 Estimated GFR (MDRD) 67 L Glucose 109 H Calcium 10.2 Total Bilirubin 0.6 AST 31 ALT 37 Alkaline Phosphatase 73 Troponin I High Sens 22.0 H* Total Protein 7.9 Albumin 4.6 Globulin 3.3 Albumin/Globulin Ratio 1.4 Lipase 37 09/03/21 19:43 WBC RBC Hgb Hct MCV MCH MCHC RDW Plt Count MPV Neut # (Auto) Lymph # (Auto) [place] # (Auto) Eos # (Auto) Baso # (Auto) Absolute Nucleated RBC Nucleated RBC % Sodium Potassium Chloride Carbon Dioxide Anion Gap BUN Creatinine Estimated GFR (MDRD) Glucose Calcium Total Bilirubin AST ALT Alkaline Phosphatase Troponin I High Sens 32.4 H* Total Protein Albumin Globulin Albumin/Globulin Ratio Lipase - Rads (name of study) chest Radiology: Prelim report reviewed (Impression: No acute cardiopulmonary disease.), EMP read indepedently, See rad report PD MEDICAL DECISION MAKING - ED course Complexity details: reviewed old records, reviewed results, re-evaluated patient, considered differential, d/w patient ED course: 66-year-old male presents to the emergency department with SVT that started about 3 PM today he denies any chest pain associated with this denies any shortness of breath. He has a heart rate of 170 and it appears regular. An IV is established and the patient is administered 6 mg of adenosine with conversion into a normal sinus rhythm with a rate in the 70s. He feels again normal. Initial troponin is 22 and we will repeat this at 2 hours. Departure - Departure Disposition: 01 Home, Self Care Clinical Impression: SVT (supraventricular tachycardia) Condition: Stable Instructions: ED Tachycardia Pat PSVT Follow-Up: EMIL ANDRADE PA [Primary Care Provider] -
[2021-09-03 20:06] VITALS: BP 150/103
== END 2021-09-03 20:27 | disposition home or self-care (01) ==
LOC: ED 16:51
DX: I47.1 Supraventricular tachycardia (principal)
CPT/HCPCS: 36415; 71045; 80053; 83690; 84484; 85025; 93005; 96374; 99283; 99284; J0153

== ENCOUNTER 2023-05-27 09:21 | Outpatient (CLI) | payer OTHER ==
--- NOTE | 2023-05-27 10:39 | XRAY Report ---
PROCEDURE: Foot 3 View LT INDICATIONS: LEFT FOOT PAIN TECHNIQUE: 3 views of the foot were acquired. COMPARISON: None. FINDINGS: Bones: Question small avulsion off the posterior talus, projecting to the level of the tibiotalar jovany int. No fracture or dislocation involving the foot. Unremarkable base of fifth metatarsal. No suspici ous bony lesions. Soft tissues: No suspicious soft tissue calcifications or masses. IMPRESSION: Question small avulsion off the posterior talus. No other fractures or dislocations. Reviewed by: Meet Arreguin MD on 05/27/2023 10:38 AM PDT Approved by: Meet Arreguin MD on 05/27/2023 10:38 AM PDT Station ID: [id number]
== END 2023-05-27 09:22 | disposition home or self-care (01) ==
LOC: DI 09:21
PROVIDERS: ATTEND Nurse Practitioner Family
DX: M79.672 Pain in left foot (principal)